=== PATIENT | female | born 1935 | race American Indian/Alaskan Native ===

== ENCOUNTER 2017-05-25 10:19 | Emergency (ER) | payer MEDICARE, OTHER ==
[2017-05-25] MEDS ORDERED: Sodium Chloride 0.9% 10 ML Syringe FLUSH PRN (11:14)
[2017-05-25 12:08] LABS: ANION GAP 10.8; CHLORIDE,CL 103 mmol/L (101-111); SODIUM,NA 136 mmol/L (135-145)
[2017-05-25 12:39] VITALS: BP 128/65
--- NOTE | 2017-05-25 12:41 | EDM.PDOC ---
Scribed by Karyn Ram 05/25/17 1241 for Kvng Lacy MD ED HPI GENERAL MEDICAL PROBLEM - General Chief Complaint: ENT Problem Stated Complaint: [id number] LOSING VOICE THROAT HURTS COUGH Time Seen by Provider: 05/25/17 11:02 Source of Information: Reports: Patient, RN, RN Notes Reviewed History Limitations: Reports: No Limitations - History of Present Illness INITIAL COMMENTS - FREE TEXT/NARRATIVE: Patient arrives from home by POV with complaint of being sick for 2 weeks with cough and sore throat. She was seen at [facility] twice for this and hasn't gotten any better. The first clinic visit she was treated with Z-CECILE. The second clinic visit she got a shot of antibiotic. Patient states "the clinic did no tests, x-ray or nothing". Denies fevers, chest pain, wheezing, nausea or vomiting. Admits to chills and cough with thick green sputum production. Location: Reports: Chest, Other (throat) Quality: Reports: Ache Severity: Moderate Improves with: Reports: None Worsens with: Reports: None Associated Symptoms: Reports: No Other Symptoms Throat Pain Score (Numeric/FACES): 6 - Related Data Allergies Allergy/AdvReac Type Severity Reaction Status Date / Time amoxicillin Allergy Rash Verified 04/05/16 14:09 clindamycin Allergy Rash Verified 04/05/16 14:09 oxycodone Allergy Rash Verified 05/25/17 10:29 Home Meds: Home Meds Ferrous Sulfate [Iron Supplement] 325 mg PO BID 11/01/14 [History] Multivitamins 1 cap PO DAILY 11/01/14 [History] Simvastatin [Zocor] 10 mg PO BEDTIME 11/01/14 [History] Brimonidine [Alphagan 0.2% Ophth Soln] 1 drop EYELF BID 12/02/15 [History] Dorzolamide/Timolol [Cosopt 2%-0.5% Ophth Soln] 1 drop EYELF BID 12/02/15 [ History] Lactose-Reduced Food [Boost] 237 ml PO DAILY 03/06/16 [History] Mineral Oil/Petrolatum Oint [Lacri-Lube S.O.P Oint] 1 applic EYEBOTH BEDTIME PRN 03/06/16 [History] Potassium Chloride 10 meq PO DAILY 03/06/16 [History] Acetaminophen 325 mg PO Q6H 04/05/16 [History] Calcium Citrate/Vitamin D3 [Calcium Citrate + D] 1 tab PO DAILY 04/05/16 [ History] Cholecalciferol (Vitamin D3) [D-2000] 400 unit PO DAILY 04/05/16 [History] Esomeprazole Magnesium 40 mg PO DAILY 04/05/16 [History] Folic Acid 1 mg PO DAILY 04/05/16 [History] Methotrexate 25 mg PO WEEKLY 04/05/16 [History] Prednisone [IJD: Prednisone] 10 mg PO DAILY 04/05/16 [History] Rivaroxaban [Xarelto] 20 mg PO DAILY 04/05/16 [History] Metoprolol Succinate [Toprol XL] 50 mg PO DAILY 05/25/17 [History] Past Medical History HEENT History: Reports: Cataract, Glaucoma, Impaired Vision Other HEENT History: left eye blind; WEARS CORRECTIVE LENSES; NO VISION ON LEFT SIDE; UPPER AND LOWER DENTURE PLATE Cardiovascular History: Reports: Afib, High Cholesterol, Pacemaker Respiratory History: Reports: Pneumonia, Recurrent Gastrointestinal History: Reports: GERD, Hiatal Hernia Other Gastrointestinal History: Hx of GI Bleed Genitourinary History: Reports: None TECHNICAL SOLUTION ARCHITECT History: Reports: None Musculoskeletal History: Reports: Arthritis, Osteoporosis, Other (See Below) Other Musculoskeletal History: Rheumatoid Arthritis Neurological History: Reports: None Psychiatric History: Reports: None Endocrine/Metabolic History: Reports: Obesity/BMI 30+ Hematologic History: Reports: Anemia, Iron Deficiency Immunologic History: Reports: None Oncologic (Cancer) History: Reports: None Dermatologic History: Reports: None - Infectious Disease History Infectious Disease History: Reports: None, Measles - Past Surgical History Head Surgeries/Procedures: Reports: None HEENT Surgical History: Reports: Cataract Surgery, Other (See Below) GI Surgical History: Reports: Colonoscopy, Colostomy, EGD, Esophageal Dilatation , Hernia Repair/Other, Other (See Below) Female Surgical History: Reports: Tubal Ligation Neurological Surgical History: Reports: None Oncologic Surgical History: Reports: None Dermatological Surgical History: Reports: None Social & Family History - Family History Family Medical History: Noncontributory HEENT: Reports: None Respiratory: Reports: None GI: Reports: None : Reports: None OBGYN: Reports: None Musculoskeletal: Reports: None Neurological: Reports: None Psychiatric: Reports: None Endocrine/Metabolic: Reports: Diabetes, type II Hematologic: Reports: None Immunologic: Reports: None Dermatologic: Reports: None Oncologic: Reports: None - Tobacco Use Smoking Status *Q: Never Smoker Years of Tobacco use: 2 Used Tobacco, but Quit: No Month Tobacco Last Used: October Second Hand Smoke Exposure: No - Caffeine Use Caffeine Use: Reports: Tea - Recreational Drug Use Recreational Drug Use: No Drug Use in Last 12 Months: No - Living Situation & Occupation Living situation: Reports: with Family Occupation: Retired ED ROS ENT - Review of Systems Review Of Systems: ROS reveals no pertinent complaints other than HPI. ED EXAM, ENT - Physical Exam Exam: See Below Exam Limited By: No Limitations General Appearance: No Apparent Distress, Other (frail elderly uncomfortable but non-toxic appearing.) Eye Exam: Bilateral Eye: Normal Inspection Ears: Normal External Exam, Normal Canal, Hearing Grossly Normal, Normal TMs Nose: Other (mildnasal congestion) Mouth/Throat: Other (mild pharyngeal erythema with postnasal drip.) Head: Atraumatic, Normocephalic Neck: Normal Inspection, Supple, Non-Tender, Full Range of Motion Respiratory/Chest: No Respiratory Distress, No Accessory Muscle Use, Decreased Breath Sounds (in bilateral bases. Harsh moist cough.), Other (no retraction.) Cardiovascular: Normal Peripheral Pulses, Regular Rate, Rhythm, No Edema, No Gallop, No JVD, No Murmur, No Rub GI/Abdominal: Normal Bowel Sounds, Soft, Non-Tender, No Organomegaly, No Distention, No Abnormal Bruit, No Mass (Female) Exam: Deferred Rectal (Female) Exam: Deferred Back: Normal Inspection, Full Range of Motion Extremities: Normal Inspection Neurological: Alert, Oriented, CN II-XII Intact, Normal Cognition, Normal Gait, Normal Reflexes, No Motor/Sensory Deficits Psychiatric: Normal Affect, Normal Mood Skin: Warm, Dry, Intact, Normal Color, No Rash Course - Vital Signs Last Recorded V/S: Last Vital Signs Temp 36.1 C 05/25/17 12:38 Pulse 67 05/25/17 12:38 Resp 18 05/25/17 12:38 BP 128/65 05/25/17 12:38 Pulse Ox 98 05/25/17 12:38 - Orders/Labs/Meds Orders: Active Orders 24 hr Category Date Time Status Peripheral IV Care [RC] . DIRECTED Care 05/25/17 11:14 Active CULTURE BLOOD [BC] Stat Lab 05/25/17 11:28 Received CULTURE BLOOD [] Stat Lab 05/25/17 11:34 Received CULTURE STREP A CONFIRMATION [] Stat Lab 05/25/17 11:31 Results STREP SCRN A RAPID W CULT CONF [] Stat Lab 05/25/17 11:31 Results UA W/MICROSCOPIC [URIN] Stat Lab 05/25/17 11:14 Uncollected Sodium Chloride 0.9% [Saline Flush] Med 05/25/17 11:14 Active 10 ml FLUSH ASDIRECTED PRN Blood Culture x2 Reflex Set [OM.PC] Stat Oth 05/25/17 11:14 Ordered Peripheral IV Insertion Adult [OM.PC] Stat Oth 05/25/17 11:14 Ordered Medication Orders Sodium Chloride (Saline Flush) 10 ml FLUSH ASDIRECTED PRN PRN Reason: Keep Vein Open Last Admin: 05/25/17 11:33 Dose: 10 ml Labs: Laboratory Tests 05/25/17 05/25/17 05/25/17 Range/Units 11:34 11:34 11:34 WBC 3.8 L (5.0-10.0) 10^3/uL RBC 3.85 L (4.2-5.4) 10^6/uL Hgb 11.3 L (12.0-16.0) g/dL Hct 34.8 L (37.0-47.0) % MCV 90.4 D (80-100) fL MCH 29.4 (27.0-34.0) pg MCHC 32.5 L (33.0-35.0) g/dL Plt Count 226 (150-450) 10^3/uL Neut % (Auto) 56.1 (42.2-75.2) % Lymph % (Auto) 26.8 (20.5-50.1) % [place] % (Auto) 11.2 H (2-8) % Eos % (Auto) 4.9 H (1.0-3.0) % Baso % (Auto) 1.0 (0.0-1.0) % Sodium 136 (135-145) mmol/L Potassium 3.8 (3.6-5.0) mmol/L Chloride 103 (101-111) mmol/L Carbon Dioxide 26.0 (21.0-31.0) mmol/L Anion Gap 10.8 BUN 10 (7-18) mg/dL Creatinine 0.6 (0.6-1.3) mg/dL Est Cr Clr Drug Dosing 73.93 mL/min Estimated GFR (MDRD) > 60 BUN/Creatinine Ratio 16.66 Glucose 109 H (74-105) mg/dL Lactic Acid 0.6 (0.5-2.2) mmol/L Calcium 8.8 (8.4-10.2) mg/dl Total Bilirubin 0.5 (0.2-1.0) mg/dL AST 18 (10-42) IU/L ALT 11 (10-60) IU/L Alkaline Phosphatase 56 (42-121) IU/L B-Natriuretic Peptide 48 (0-100) pg/ml Total Protein 7.0 (6.7-8.2) g/dl Albumin 3.7 (3.2-5.5) g/dl Globulin 3.3 Albumin/Globulin Ratio 1.12 Rapid strep: egative. Influenza A and B: Negative. Meds: Medications Generic Name Dose Route Start Last Admin Trade Name Freq PRN Reason Stop Dose Admin Sodium Chloride 10 ml 05/25/17 11:14 05/25/17 11:33 Saline Flush FLUSH 10 ml ASDIRECTED PRN Administration Keep Vein Open - Radiology Interpretation Free Text/Narrative:: Chest x-ray: Emphysema and chronic interstitial lung disease. See Rad report. Departure - Departure Time of Disposition: 12:36 Disposition: Home, Self-Care 01 Condition: Good Clinical Impression: Interstitial lung disease Acute bronchitis Qualifiers: Bronchitis organism: unspecified organism Qualified Code(s): J20.9 - Acute bronchitis, unspecified Pharyngitis Qualifiers: Pharyngitis/tonsillitis etiology: unspecified etiology Qualified Code(s): J02.9 - Acute pharyngitis, unspecified - Discharge Information Instructions: Acute Bronchitis, [id number], Pharyngitis, [id number] Forms: ED Department Discharge Additional Instructions: RX: Zyrtec 10mg. RX: Tessalon Perles 200mg. RX: Levaquin 500mg. RX: Prednisone 20mg. Follow up in clinic in 7-10 days. Return to ER if worse at any time. - My Orders Last 24 Hours: My Active Orders 05/25/17 11:14 Peripheral IV Care [RC] . DIRECTED UA W/MICROSCOPIC [URIN] Stat Sodium Chloride 0.9% [Saline Flush] 10 ml FLUSH ASDIRECTED PRN Blood Culture x2 Reflex Set [OM.PC] Stat Peripheral IV Insertion Adult [OM.PC] Stat 05/25/17 11:28 CULTURE BLOOD [BC] Stat 05/25/17 11:31 CULTURE STREP A CONFIRMATION [RM] Stat STREP SCRN A RAPID W CULT CONF [RM] Stat 05/25/17 11:34 CULTURE BLOOD [BC] Stat - Assessment/Plan Last 24 Hours: My Active Orders 05/25/17 11:14 Peripheral IV Care [RC] . DIRECTED UA W/MICROSCOPIC [URIN] Stat Sodium Chloride 0.9% [Saline Flush] 10 ml FLUSH ASDIRECTED PRN Blood Culture x2 Reflex Set [OM.PC] Stat Peripheral IV Insertion Adult [OM.PC] Stat 05/25/17 11:28 CULTURE BLOOD [BC] Stat 05/25/17 11:31 CULTURE STREP A CONFIRMATION [RM] Stat STREP SCRN A RAPID W CULT CONF [RM] Stat 05/25/17 11:34 CULTURE BLOOD [BC] Stat I have read and agree with the documentation that has been completed regarding this visit. By signing this record, I attest that the documentation was completed in my physical presence and is an accurate record of the encounter.
== END 2017-05-25 12:46 | disposition home or self-care (01) ==
LOC: DL.ED 10:19
DX: J20.9 Acute bronchitis, unspecified (principal); J84.9 Interstitial pulmonary disease, unspecified; J02.9 Acute pharyngitis, unspecified; R06.00 Dyspnea, unspecified; E78.00 Pure hypercholesterolemia, unspecified; Z88.1 Allergy status to other antibiotic agents; Z88.5 Allergy status to narcotic agent; Z79.899 Other long term (current) drug therapy
CPT/HCPCS: 36415; 71046; 80053; 81001; 83605; 83880; 85025; 87040; 87081; 87430; 87804; 99283; J7050

== ENCOUNTER 2018-02-04 12:39 | Emergency (ER) | payer MEDICARE, OTHER ==
[2018-02-04] MEDS ORDERED: Ondansetron 4 MG/2 ML SDV IV ONE (12:56)
[2018-02-04] MEDS ORDERED: Sodium Chloride 0.9% 1,000 ML IV ONE (12:56)
--- NOTE | 2018-02-04 13:17 | EDM.PDOC ---
ED HPI GENERAL MEDICAL PROBLEM - General Chief Complaint: Gastrointestinal Problem Stated Complaint: NOT FEELING GOOD Time Seen by Provider: 02/04/18 13:00 Source of Information: Reports: Patient History Limitations: Reports: No Limitations - History of Present Illness INITIAL COMMENTS - FREE TEXT/NARRATIVE: This 82 yo female patient reports to the ED due to waking up at 0400 this morning with diarrhea, has had some nausea/vomiting with that and now has some chest pain. The patient reports that she as has 6 loose bowel movements since 0400 today and has vomited 2 times. The patient reports that she tried to take some Pepto, but that caused her to vomit. The patient reports her chest pain started after the vomiting. The patient report no similar episodes in the past. Onset: Today Onset Date: 02/04/18 Onset Time: 04:00 Duration: Constant Location: Reports: Chest, Abdomen Quality: Reports: Burning, Dull Severity: Moderate Improves with: Reports: None Worsens with: Reports: None Associated Symptoms: Reports: Nausea/Vomiting, Other (diarrhea) Treatments MARKETING OPERATIONS CONSULTANT: Reports: Other Medication(s) (Tried to take Pepto) Chest Pain Score (Numeric/FACES): 6 - Related Data Allergies Allergy/AdvReac Type Severity Reaction Status Date / Time amoxicillin Allergy Rash Verified 02/04/18 12:44 clindamycin Allergy Rash Verified 02/04/18 12:44 oxycodone Allergy Rash Verified 02/04/18 12:44 Home Meds: Home Meds Multivitamins 1 cap PO DAILY 11/01/14 [History] Simvastatin [Zocor] 10 mg PO BEDTIME 11/01/14 [History] Brimonidine [Alphagan 0.2% Ophth Soln] 1 drop EYELF BID 12/02/15 [History] Dorzolamide/Timolol [Cosopt 2%-0.5% Ophth Soln] 1 drop EYELF BID 12/02/15 [ History] Mineral Oil/Petrolatum Oint [Lacri-Lube S.O.P Oint] 1 applic EYEBOTH BEDTIME PRN 03/06/16 [History] Acetaminophen 325 mg PO Q6H 04/05/16 [History] Calcium Citrate/Vitamin D3 [Calcium Citrate + D] 1 tab PO DAILY 04/05/16 [ History] Cholecalciferol (Vitamin D3) [D-2000] 400 unit PO DAILY 04/05/16 [History] Folic Acid 1 mg PO DAILY 04/05/16 [History] Methotrexate 25 mg PO WEEKLY 04/05/16 [History] Rivaroxaban [Xarelto] 20 mg PO DAILY 04/05/16 [History] Metoprolol Succinate [Toprol XL] 50 mg PO DAILY 05/25/17 [History] Past Medical History HEENT History: Reports: Cataract, Glaucoma, Impaired Vision Other HEENT History: left eye blind; WEARS CORRECTIVE LENSES; NO VISION ON LEFT SIDE; UPPER AND LOWER DENTURE PLATE Cardiovascular History: Reports: Afib, High Cholesterol, Pacemaker Respiratory History: Reports: Pneumonia, Recurrent Gastrointestinal History: Reports: GERD, Hiatal Hernia Other Gastrointestinal History: Hx of GI Bleed Genitourinary History: Reports: None FUEL OPERATOR History: Reports: None Musculoskeletal History: Reports: Arthritis, Osteoporosis, Other (See Below) Other Musculoskeletal History: Rheumatoid Arthritis Neurological History: Reports: None Psychiatric History: Reports: None Endocrine/Metabolic History: Reports: Obesity/BMI 30+ Hematologic History: Reports: Anemia, Iron Deficiency Immunologic History: Reports: None Oncologic (Cancer) History: Reports: None Dermatologic History: Reports: None - Infectious Disease History Infectious Disease History: Reports: None, Measles - Past Surgical History Head Surgeries/Procedures: Reports: None HEENT Surgical History: Reports: Cataract Surgery, Other (See Below) GI Surgical History: Reports: Colonoscopy, Colostomy, EGD, Esophageal Dilatation , Hernia Repair/Other, Other (See Below) Female Surgical History: Reports: Tubal Ligation Neurological Surgical History: Reports: None Oncologic Surgical History: Reports: None Dermatological Surgical History: Reports: None Social & Family History - Family History Family Medical History: Noncontributory HEENT: Reports: None Respiratory: Reports: None GI: Reports: None : Reports: None OBGYN: Reports: None Musculoskeletal: Reports: None Neurological: Reports: None Psychiatric: Reports: None Endocrine/Metabolic: Reports: Diabetes, type II Hematologic: Reports: None Immunologic: Reports: None Dermatologic: Reports: None Oncologic: Reports: None - Tobacco Use Smoking Status *Q: Never Smoker - Caffeine Use Caffeine Use: Reports: Tea - Recreational Drug Use Recreational Drug Use: No - Living Situation & Occupation Living situation: Reports: with Family Occupation: Retired ED ROS GENERAL - Review of Systems Review Of Systems: ROS reveals no pertinent complaints other than HPI. ED EXAM, GI/ABD - Physical Exam Exam: See Below Exam Limited By: No Limitations General Appearance: Alert, WD/WN, Moderate Distress, Thin Eyes: Bilateral: Normal Appearance (The patient has clouding of both eyes and has surgery planned for her right eye. The patient reports that she is not able to see anything out of her left eye. ), EOMI Ears: Normal External Exam, Normal Canal, Hearing Grossly Normal, Normal TMs Nose: Normal Inspection, Normal Mucosa, No Blood Throat/Mouth: Normal Inspection, Normal Lips, Normal Teeth, Normal Gums, Normal Oropharynx, Normal Voice, No Airway Compromise Head: Atraumatic, Normocephalic Neck: Normal Inspection, Supple, Non-Tender, Full Range of Motion Respiratory/Chest: No Respiratory Distress, Lungs Clear, Normal Breath Sounds, No Accessory Muscle Use, Chest Non-Tender Cardiovascular: Normal Peripheral Pulses, Regular Rate, Rhythm, No Edema, No Gallop, No JVD, No Murmur, No Rub GI/Abdominal Exam: Normal Bowel Sounds, Soft, No Organomegaly, No Distention, No Abnormal Bruit, No Mass, Pelvis Stable, Tender (diffuse tenderness) (Female) Exam: Deferred Rectal (Female) Exam: Deferred Back Exam: Normal Inspection, Full Range of Motion, NT Extremities: Normal Inspection, Normal Range of Motion, Non-Tender, Normal Capillary Refill, No Pedal Edema Neurological: Alert, Oriented, CN II-XII Intact, Normal Cognition Psychiatric: Normal Affect, Normal Mood Skin Exam: Warm, Dry, Intact, Normal Color, No Rash Lymphatic: No Adenopathy Course - Vital Signs Last Recorded V/S: Last Vital Signs Temp 36.2 C 02/04/18 12:44 Pulse 60 02/04/18 13:41 Resp 18 02/04/18 13:41 BP 106/55 L 02/04/18 13:41 Pulse Ox 99 02/04/18 13:41 - Orders/Labs/Meds Orders: Active Orders 24 hr Category Date Time Status EKG Documentation Completion [RC] URGENT Care 02/04/18 12:57 Active Chest 1V Frontal [CR] Urgent Exams 02/04/18 13:05 Taken Sodium Chloride 0.9% [Normal Saline] 1,000 ml Med 02/04/18 12:56 Active IV .BOLUS Medication Orders Sodium Chloride (Normal Saline) 1,000 mls @ 999 mls/hr IV .BOLUS ONE Stop: 02/04/18 13:56 Last Infusion: 02/04/18 13:32 Dose: 125 mls/hr Admin: 02/04/18 13:04 Dose: 999 mls/hr Labs: Laboratory Tests 02/04/18 02/04/18 Range/Units 13:00 13:00 WBC 6.5 (5.0-10.0) 10^3/uL RBC 4.72 (4.2-5.4) 10^6/uL Hgb 13.5 D (12.0-16.0) g/dL Hct 42.3 (37.0-47.0) % MCV 89.6 (80-100) fL MCH 28.6 (27.0-34.0) pg MCHC 31.9 L (33.0-35.0) g/dL Plt Count 230 (150-450) 10^3/uL Neut % (Auto) 80.7 H (42.2-75.2) % Lymph % (Auto) 12.7 L (20.5-50.1) % [place] % (Auto) 5.2 (2-8) % Eos % (Auto) 0.9 L (1.0-3.0) % Baso % (Auto) 0.5 (0.0-1.0) % Sodium 135 (135-145) mmol/L Potassium 4.2 (3.6-5.0) mmol/L Chloride 107 (101-111) mmol/L Carbon Dioxide 18.0 L (21.0-31.0) mmol/L Anion Gap 14.2 BUN 25 H (7-18) mg/dL Creatinine 1.3 (0.6-1.3) mg/dL Est Cr Clr Drug Dosing 33.56 mL/min Estimated GFR (MDRD) 39 BUN/Creatinine Ratio 19.23 Glucose 125 H (74-105) mg/dL Calcium 9.9 (8.4-10.2) mg/dl Total Bilirubin 1.0 (0.2-1.0) mg/dL AST 26 (10-42) IU/L ALT 19 (10-60) IU/L Alkaline Phosphatase 73 (42-121) IU/L Troponin I < 0.02 (0.00-0.02) ng/ml Total Protein 8.9 H (6.7-8.2) g/dl Albumin 4.6 (3.2-5.5) g/dl Globulin 4.3 Albumin/Globulin Ratio 1.07 Amylase 58 (28-100) U/L Lipase 24 (22-51) U/L Meds: Medications Generic Name Dose Route Start Last Admin Trade Name Freq PRN Reason Stop Dose Admin Sodium Chloride 1,000 mls @ 999 mls/hr 02/04/18 12:56 02/04/18 13:32 Normal Saline IV 02/04/18 13:56 125 mls/hr .BOLUS ONE Infusion Discontinued Medications Generic Name Dose Route Start Last Admin Trade Name Freq PRN Reason Stop Dose Admin Ondansetron HCl 4 mg 02/04/18 12:56 02/04/18 13:12 Zofran IV 02/04/18 12:57 4 mg ONETIME ONE Administration Departure - Departure Time of Disposition: 13:43 Disposition: Home, Self-Care 01 Condition: Fair Clinical Impression: Gastroenteritis - Discharge Information *PRESCRIPTION DRUG MONITORING PROGRAM REVIEWED*: Not Applicable *COPY OF PRESCRIPTION DRUG MONITORING REPORT IN PATIENT NAEL: Not Applicable Instructions: Viral Gastroenteritis, Adult, [id number] Forms: ED Department Discharge Care Plan Goals: The patient and family were advised of the examination, lab, EKG and x-ray results during the visit. The patient was given IV fluids and IV Zofran while in the ED. The patient was discharged with a script for Zofran ODT (4 mg) #12 to take 1 by mouth every 6 hours as needed for nausea. The patient was encouraged to stick to a BRAT diet (bananas, rice, applesauce and toast) with small frequent sips of fluids. If the patient has any additional symptoms or concerns, the patient should follow-up with her primary care facility or return to the emergency department. - My Orders Last 24 Hours: My Active Orders 02/04/18 12:56 Sodium Chloride 0.9% [Normal Saline] 1,000 ml IV .BOLUS 02/04/18 12:57 EKG Documentation Completion [RC] URGENT 02/04/18 13:05 Chest 1V Frontal [CR] Urgent - Assessment/Plan Last 24 Hours: My Active Orders 02/04/18 12:56 Sodium Chloride 0.9% [Normal Saline] 1,000 ml IV .BOLUS 02/04/18 12:57 EKG Documentation Completion [RC] URGENT 02/04/18 13:05 Chest 1V Frontal [CR] Urgent
[2018-02-04 13:29] LABS: ANION GAP 14.2; CHLORIDE,CL 107 mmol/L (101-111); SODIUM,NA 135 mmol/L (135-145)
[2018-02-04 13:42] VITALS: BP 106/55
--- NOTE | 2018-02-04 14:09 | CR ---
CLINICAL HISTORY: 82-year-old female with chest pain INTERPRETATION: Large hiatus hernia incarcerated in the middle mediastinum. Chronic interstitial fibrotic changes that were present on 25 May 2017 exam. Cardiac pacemaker but leads intact and normal cardiac size/configuration. No cephalization of flow, n ew signs of alveolar edema or dependent pleural fluid accumulation. No new lung mass, hilar lymphadenopathy or focal lobar pneumonia. Chronic bronchiectasis in the bases suggests possible aspiration. CONCLUSION: No acute new cardiopulmonary abnormality since 25 May 2017 exam.
== END 2018-02-04 13:52 | disposition home or self-care (01) ==
LOC: DL.ED 12:39
DX: K52.9 Noninfective gastroenteritis and colitis, unspecified (principal)
CPT/HCPCS: 36415; 71045; 80053; 82150; 83690; 84484; 85025; 93005; 93010; 96361; 96374; 99284; J2405; J7030

== ENCOUNTER 2020-01-11 05:27 | Day surgery (SDC) | payer MEDICARE, OTHER ==
[2020-01-11] MEDS ORDERED: Midazolam 1 MG/ML 2 ML SDV IV ONE ×3 (05:28→06:41)
[2020-01-11] MEDS ORDERED: fentaNYL 100 MCG/2 ML SDV IV ONE ×2 (05:28→06:37)
[2020-01-11] MEDS ORDERED: Sodium Chloride 0.9% 10 ML Syringe FLUSH PRN (06:00)
[2020-01-11] MEDS ORDERED: Dextrose 5%-0.45% NaCl 1,000 ML IV SCH (06:00)
[2020-01-11] MEDS ORDERED: fentaNYL 100 MCG/2 ML SDV ONE (06:19)
[2020-01-11] MEDS ORDERED: Midazolam 1 MG/ML 2 ML SDV ONE (06:19)
--- NOTE | 2020-01-11 08:10 | OR ---
DATE: 01/11/2020 PROCEDURE: Esophagogastroduodenoscopy and multiple pinch biopsies. INSTRUMENT USED: GIF-HQ 190 Olympus video panendoscope. PREMEDICATIONS: No oral or topical anesthesia used. Fentanyl 50 mcg intravenous, Versed 1 mg intravenous. Nasal O2 cannula. The procedure was done under pulse oximetry, BP recording, and nurse monitoring. INDICATION: The patient with iron-deficiency anemia and Hemoccult positive stools, unexplained. Has rheumatoid arthritis and on multiple medications. Esophagogastroduodenoscopy is performed for detection of any active erosive lesions, Islverman esophagus and/or malignancy also under consideration, H pylori status to be determined, small bowel biopsies to be obtained if indicated, endoscopic hemostasis therapy if needed. DESCRIPTION OF PROCEDURE: The scope was passed with ease. Adequate visualization of the esophagus was made from proximal to distal areas. No upper esophageal lesions identified. No distal esophageal stricture. No uphill or downhill esophageal varices. No Mary-Rocha tear. No evidence of erosive esophagitis by [place] criteria. No esophageal polyp or tumor mass identified. Large hiatal hernia was noted. No proximal gastric varices noted. Gastric fundus examination by retroflexion showed no polypoid lesions. No gastric ulcer, malignant mass, or vascular ectasia identified. Duodenal bulb showed no ulcer. Visualized second part of the duodenum was unremarkable. Multiple pinch biopsies, 4 in number, were taken from different areas of the second part of the duodenum, and tissues were also obtained from the duodenal bulb at 9 and 12 o'clock positions and sent for any histopathologic evidence of celiac disease. Multiple pinch biopsies were also taken from the gastric antrum and proximal body and sent for PyloriTek test for H pylori and histopathology. No bleeding was noted from any of the visualized areas at the completion of examination. Photographs were taken of the duodenal bulb, gastric antrum, fundus, and distal esophagus. IMPRESSION: Large hiatal hernia. The patient tolerated the procedure well. [facility] /[id number] MTDD
--- NOTE | 2020-01-11 08:40 | LETTER ---
01/11/2020 Cyndy Goodson NP [facility] [address] [place] [address] RE: ELLYNREYNALDO : 1935 Dear Ms. Goodson: Ms. Reynaldo Suárez had esophagogastroduodenoscopy done this morning and she tolerated the procedure well. I herewith send a copy of the endoscopy note and photographs for your review. Thank you. Sincerely, [facility] /[id number]
[2020-01-11 09:29] VITALS: BP 140/56; PULSE 66
== END 2020-01-11 08:55 | disposition home or self-care (01) ==
LOC: DL.ENDO 05:27
PROVIDERS: ATTEND Internal Medicine Gastroenterology
DX: K29.50 Unspecified chronic gastritis without bleeding (principal); K44.9 Diaphragmatic hernia without obstruction or gangrene; D50.9 Iron deficiency anemia, unspecified; R19.5 Other fecal abnormalities; K21.9 Gastro-esophageal reflux disease without esophagitis; E78.00 Pure hypercholesterolemia, unspecified; K40.90 Unilateral inguinal hernia, without obstruction or gangrene, not specified as recurrent; I48.91 Unspecified atrial fibrillation; Z95.0 Presence of cardiac pacemaker; Z87.19 Personal history of other diseases of the digestive system; Z87.39 Personal history of other diseases of the musculoskeletal system and connective tissue; Z98.49 Cataract extraction status, unspecified eye; Z98.890 Other specified postprocedural states; Z88.0 Allergy status to penicillin; Z88.1 Allergy status to other antibiotic agents; Z88.6 Allergy status to analgesic agent; Z79.899 Other long term (current) drug therapy
CPT/HCPCS: 43239; 87077; 88305; J2250; J3010; J7042

== ENCOUNTER 2020-01-15 06:35 | Day surgery (SDC) | payer MEDICARE, OTHER ==
[~2020-01-15 06:35] MED LIST: Dextrose 5%-0.45% NaCl 1,000 ML IV SCH; Sodium Chloride 0.9% 10 ML Syringe FLUSH PRN
[2020-01-15] MEDS ORDERED: Midazolam 1 MG/ML 2 ML SDV IV ONE ×3 (06:36→08:04)
[2020-01-15] MEDS ORDERED: fentaNYL 100 MCG/2 ML SDV IV ONE ×4 (06:36→07:47)
[2020-01-15] MEDS ORDERED: Midazolam 1 MG/ML 2 ML SDV ONE (06:42)
[2020-01-15] MEDS ORDERED: fentaNYL 100 MCG/2 ML SDV ONE (06:43)
[2020-01-15 10:18] VITALS: BP 107/75; PULSE 64
--- NOTE | 2020-01-15 10:19 | OR ---
DATE: 01/15/2020 PROCEDURE: Total colonoscopy. INSTRUMENT USED: PCF-H190DL Olympus video colonoscope. PREMEDICATIONS: Fentanyl 100 mcg intravenous, Versed 1.5 mg intravenous. Nasal O2 cannula. The procedure was done under pulse oximetry, BP recording, and monitoring tech. INDICATION: The patient with iron-deficiency anemia and Hemoccult positive stools. Colonoscopic examination is done for detection of any polypoid lesions and removal, endoscopic hemostasis therapy if needed. DESCRIPTION OF PROCEDURE: Initial rectal exam was unremarkable. Rigid anoscopy showed small internal hemorrhoids without bleeding from them. The colonoscope was passed up to the ileocecal area. Photographs were taken of the normal- appearing cecum, identified by double-bulged ileocecal folds. No bleeding was noted from any of the visualized areas at the commencement of the examination. The bowel preparation was found to be adequate. [place] scale 2 is all the areas, total score 6. No vascular ectasia. No large isolated ulcerations seen. No evidence of diffuse inflammatory bowel disease in the form of friability, contact bleeding, or ulcerations. No polyp or tumor mass identified. Numerous scattered wide-mouth diverticula were noted in the distal left colon along with significant deformity. Probing the proximal sides of folds and flexures using adequate distention and clearing up the stool material, withdrawal of the scope was made, cecum to rectum time over 6 minutes. No bleeding was noted from any of the visualized areas at the completion of examination. IMPRESSION: Diverticulosis. The patient tolerated the procedure well. [facility] /[id number]
--- NOTE | 2020-01-15 10:31 | LETTER ---
01/15/[address] Goodson NP [facility] [address] [place] [address] RE: ELLYNREYNALDO : 1935 Dear Ms. Goodson: Ms. Reynaldo Suárez had colonoscopic examination done this morning and she tolerated the procedure well. I herewith send a copy of the endoscopy note and photographs for your review. Thank you. Sincerely, [facility] /[id number]
== END 2020-01-15 10:17 | disposition home or self-care (01) ==
LOC: DL.ENDO 06:35
PROVIDERS: ATTEND Internal Medicine Gastroenterology
DX: K57.30 Diverticulosis of large intestine without perforation or abscess without bleeding (principal); D50.9 Iron deficiency anemia, unspecified; K21.9 Gastro-esophageal reflux disease without esophagitis; K44.9 Diaphragmatic hernia without obstruction or gangrene; K40.90 Unilateral inguinal hernia, without obstruction or gangrene, not specified as recurrent; E78.00 Pure hypercholesterolemia, unspecified; I48.91 Unspecified atrial fibrillation; Z95.0 Presence of cardiac pacemaker; Z88.0 Allergy status to penicillin; Z88.1 Allergy status to other antibiotic agents; Z87.19 Personal history of other diseases of the digestive system; Z87.39 Personal history of other diseases of the musculoskeletal system and connective tissue; Z98.49 Cataract extraction status, unspecified eye; Z88.6 Allergy status to analgesic agent
CPT/HCPCS: 45378; J2250; J3010; J7042

== ENCOUNTER 2020-03-31 13:12 | Emergency (ER) | payer MEDICARE, OTHER ==
[2020-03-31 13:16] VITALS: BP 120/68; PULSE 104
[2020-03-31 14:23] LABS: CHLORIDE,CL 94 mmol/L (98-107); SODIUM,NA 128 mmol/L (136-145)
[2020-03-31] MEDS ORDERED: Iopamidol 755 Mg/ML 100 ML Bottle IVPUSH ONE (15:02)
--- NOTE | 2020-03-31 15:02 | EDM.PDOC ---
ED HPI GENERAL MEDICAL PROBLEM - General Chief Complaint: Respiratory Problem Stated Complaint: AMBULANCE Time Seen by Provider: 03/31/20 13:45 Source of Information: Reports: Patient, RN, RN Notes Reviewed History Limitations: Reports: No Limitations - History of Present Illness INITIAL COMMENTS - FREE TEXT/NARRATIVE: Patient presents to ER with complaint of cough, shortness of breath, and pressure in the chest. Patient states she has a history of pulmonary fibrosis. Denies fever chills, nausea, vomiting, diarrhea. Patient denies any Covid concerns at this time. Oxygen saturation 96 to 98% on room air, patient does not appear to be in any distress. Onset: Gradual Generalized Pain Score (Numeric/FACES): 4 - Related Data Allergies Allergy/AdvReac Type Severity Reaction Status Date / Time amoxicillin Allergy Rash Verified 03/31/20 13:12 clindamycin Allergy Rash Verified 03/31/20 13:12 oxycodone Allergy Rash Verified 03/31/20 13:12 Home Meds: Home Meds Multivitamins 1 cap PO DAILY 11/01/14 [History] Simvastatin [Zocor] 10 mg PO BEDTIME 11/01/14 [History] Brimonidine [Alphagan 0.2% Ophth Soln] 1 drop EYELF BID 12/02/15 [History] Dorzolamide/Timolol [Cosopt 2%-0.5% Ophth Soln] 1 drop EYELF BID 12/02/15 [History] Mineral Oil/Petrolatum Oint [Lacri-Lube S.O.P Oint] 1 applic EYEBOTH BEDTIME PRN 03/06/16 [History] Acetaminophen 325 mg PO Q6H 04/05/16 [History] Calcium Citrate/Vitamin D3 [Calcium Citrate + D] 1 tab PO BID 04/05/16 [History] Folic Acid 1 mg PO DAILY 04/05/16 [History] Rivaroxaban [Xarelto] 20 mg PO DAILY 04/05/16 [History] Metoprolol Succinate [Toprol XL] 50 mg PO DAILY 05/25/17 [History] Adalimumab [Humira] 40 mg INJECT .[id number] 01/07/20 [History] Carboxymethylcellulose Sodium [Refresh Celluvisc] 1 drop EYEBOTH BEDTIME 01/07/20 [History] Diclofenac Sodium [Voltaren 1% Gel] 1 squirt TOP ASDIRECTED 01/07/20 [History] Esomeprazole Magnesium [Nexium] 40 mg PO DAILY 01/07/20 [History] Ketorolac [Acular 0.5% Ophth Soln] 1 drop EYEBOTH ASDIRECTED 01/07/20 [History] Cetirizine [ZyrTEC] 10 mg PO DAILY 01/11/20 [History] Cholecalciferol (Vitamin D3) [Vitamin D3] 50 mcg PO DAILY 01/11/20 [History] Leflunomide [Arava] 10 mg PO DAILY 01/11/20 [History] Zinc 50 mg PO DAILY 01/11/20 [History] Past Medical History HEENT History: Reports: Cataract, Glaucoma, Impaired Vision Other HEENT History: left eye blind; WEARS CORRECTIVE LENSES; NO VISION ON LEFT SIDE; UPPER AND LOWER DENTURE PLATE Cardiovascular History: Reports: Afib, High Cholesterol, Pacemaker Respiratory History: Reports: Asthma, PE, Pneumonia, Recurrent, Pulmonary Fibrosis, Other (See Below) Other Respiratory History: pulmonary fibrosis Gastrointestinal History: Reports: GERD, GI Bleed, Hiatal Hernia Other Gastrointestinal History: Hx of GI Bleed Genitourinary History: Reports: Other (See Below) Other Genitourinary History: bilateral renal cysts 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 Musculoskeletal History: Reports: Arthritis, Osteoporosis, RA, Other (See Below) Other Musculoskeletal History: Rheumatoid Arthritis Neurological History: Reports: None Psychiatric History: Reports: None Endocrine/Metabolic History: Reports: Obesity/BMI 30+ Hematologic History: Reports: Anemia, Iron Deficiency Immunologic History: Reports: None Oncologic (Cancer) History: Reports: None Dermatologic History: Reports: None - Infectious Disease History Infectious Disease History: Reports: None - Past Surgical History Head Surgeries/Procedures: Reports: None HEENT Surgical History: Reports: Cataract Surgery, Other (See Below) Other HEENT Surgeries/Procedures: CORNEA TRANSPLANT X2 Cardiovascular Surgical History: Reports: Pacer GI Surgical History: Reports: Colonoscopy, Colostomy, EGD, Esophageal Dilatation, Hernia Repair/Other, Other (See Below) Other GI Surgeries/Procedures: Umbilical Hernia Repair. esophageal dilatation Female Surgical History: Reports: None Neurological Surgical History: Reports: None Musculoskeletal Surgical History: Reports: None Oncologic Surgical History: Reports: None Dermatological Surgical History: Reports: None Social & Family History - Family History Family Medical History: No Pertinent Family History HEENT: Reports: None Respiratory: Reports: None GI: Reports: None : Reports: None OBGYN: Reports: None Musculoskeletal: Reports: None Neurological: Reports: None Psychiatric: Reports: None Endocrine/Metabolic: Reports: Diabetes, type II Hematologic: Reports: None Immunologic: Reports: None Dermatologic: Reports: None Oncologic: Reports: None - Tobacco Use Tobacco Use Status *Q: Never Tobacco User Second Hand Smoke Exposure: No - Caffeine Use Caffeine Use: Reports: Coffee Caffeine Use Comment: 16 oz daily - Recreational Drug Use Recreational Drug Use: No - Living Situation & Occupation Living situation: Reports: with Family Occupation: Retired ED ROS GENERAL - Review of Systems Review Of Systems: Comprehensive ROS is negative, except as noted in HPI. ED EXAM, GENERAL - Physical Exam Exam: See Below Exam Limited By: No Limitations General Appearance: Alert, WD/WN, No Apparent Distress Eye Exam: Right Eye: EOMI, Normal Inspection, Left Eye: Other (keeps eye closed at all times) Ears: Normal External Exam, Hearing Grossly Normal Nose: Normal Inspection Throat/Mouth: Normal Inspection, Normal Voice, No Airway Compromise Head: Atraumatic, Normocephalic Neck: Normal Inspection, Supple, Non-Tender, Full Range of Motion Respiratory/Chest: No Respiratory Distress, Decreased Breath Sounds, Crackles (Throughout) Cardiovascular: Normal Peripheral Pulses, Regular Rate, Rhythm, No Edema, No Gallop, No JVD, No Murmur, No Rub Peripheral Pulses: 2+: Radial (L), Radial (R) GI/Abdominal: Normal Bowel Sounds, Soft, Non-Tender (Female) Exam: Deferred Rectal (Female) Exam: Deferred Back Exam: Normal Inspection, Decreased Range of Motion Extremities: Normal Inspection, Normal Range of Motion, Non-Tender, Normal Capillary Refill, No Pedal Edema Neurological: Alert, Oriented, CN II-XII Intact, Normal Cognition Psychiatric: Normal Affect, Normal Mood Skin Exam: Warm, Dry, Intact, Normal Color, No Rash Lymphatic: No Adenopathy Course - Vital Signs Last Recorded V/S: Last Vital Signs Temp 99.0 F 03/31/20 13:13 Pulse 104 H 03/31/20 13:13 Resp 18 03/31/20 13:13 BP 120/68 03/31/20 13:13 Pulse Ox 97 03/31/20 13:13 - Orders/Labs/Meds Orders: Active Orders 24 hr Category Date Time Status CULTURE BLOOD [BC] Stat Lab 03/31/20 13:43 Received CULTURE BLOOD [BC] Stat Lab 03/31/20 13:46 Received CULTURE URINE [RM] Stat Lab 03/31/20 16:50 Received Blood Culture x2 Reflex Set [OM.PC] Stat Oth 03/31/20 13:25 Ordered Labs: Laboratory Tests 03/31/20 03/31/20 03/31/20 Range/Units 13:34 13:46 13:46 WBC 7.2 (5.0-10.0) 10^3/uL RBC 3.64 L (4.2-5.4) 10^6/uL Hgb 9.7 L D (12.0-16.0) g/dL Hct 29.4 L (37.0-47.0) % MCV 80.8 D (80-100) fL MCH 26.6 L (27.0-34.0) pg MCHC 33.0 (33.0-35.0) g/dL Plt Count 352 D (150-450) 10^3/uL Neut % (Auto) 74.2 (42.2-75.2) % Lymph % (Auto) 13.3 L (20.5-50.1) % [place] % (Auto) 7.9 (2-8) % Eos % (Auto) 1.1 (1.0-3.0) % Baso % (Auto) 3.5 H (0.0-1.0) % Add Manual Diff Yes Neutrophils % (Manual) 76 H (42-75) % Band Neutrophils % 4 % Lymphocytes % (Manual) 12 L (20-50) % Monocytes % (Manual) 7 (2-8) % Eosinophils % (Manual) 1 (1-3) % Nucleated RBCs 1 /100WBC PT 12.3 H (9.0-12.0) SEC INR 1.3 H (0.9-1.2) D-Dimer, Quantitative 1240 H (0-400) ng/mL Sodium (136-145) mmol/L Potassium (3.5-5.1) mmol/L Chloride (98-107) mmol/L Carbon Dioxide (21-32) mmol/L Anion Gap (7-13) mEq/L BUN (7-18) mg/dL Creatinine (0.55-1.02) mg/dL Est Cr Clr Drug Dosing mL/min Estimated GFR (MDRD) BUN/Creatinine Ratio (No establ ref range) Glucose (74-99) mg/dL Lactic Acid (0.4-2.0) mmol/L Calcium (8.5-10.1) mg/dL Total Bilirubin (0.2-1.0) mg/dL AST (15-37) U/L ALT (14-59) U/L Alkaline Phosphatase (46-116) U/L Lactate Dehydrogenase (81-234) U/L Troponin I (0.000-0.056) ng/mL B-Natriuretic Peptide (0-100) pg/ml Total Protein (6.4-8.2) g/dL Albumin (3.4-5.0) g/dL Globulin Albumin/Globulin Ratio Urine Color (YELLOW) Urine Appearance (CLEAR) Urine pH (5.0-9.0) Ur Specific [place] (1.005-1.030) Urine Protein (NEGATIVE) Urine Glucose (UA) (NEGATIVE) Urine Ketones (NEGATIVE) Urine Occult Blood (NEGATIVE) Urine Nitrite (NEGATIVE) Urine Bilirubin (NEGATIVE) Urine Urobilinogen (0.2-1.0) mg/dL Ur Leukocyte Esterase (NEGATIVE) Urine RBC /HPF Urine WBC (0-5/HPF) /HPF Ur Epithelial Cells (NOT SEEN) /HPF Amorphous Sediment (NOT SEEN) /HPF Urine Bacteria (0-FEW/HPF) /HPF Urine Mucus (NOT SEEN) /LPF SARS CoV-2 RNA Rapid QUE Negative (NEGATIVE) 03/31/20 03/31/20 03/31/20 Range/Units 13:46 13:46 16:50 WBC (5.0-10.0) 10^3/uL RBC (4.2-5.4) 10^6/uL Hgb (12.0-16.0) g/dL Hct (37.0-47.0) % MCV (80-100) fL MCH (27.0-34.0) pg MCHC (33.0-35.0) g/dL Plt Count (150-450) 10^3/uL Neut % (Auto) (42.2-75.2) % Lymph % (Auto) (20.5-50.1) % [place] % (Auto) (2-8) % Eos % (Auto) (1.0-3.0) % Baso % (Auto) (0.0-1.0) % Add Manual Diff Neutrophils % (Manual) (42-75) % Band Neutrophils % % Lymphocytes % (Manual) (20-50) % Monocytes % (Manual) (2-8) % Eosinophils % (Manual) (1-3) % Nucleated RBCs /100WBC PT (9.0-12.0) SEC INR (0.9-1.2) D-Dimer, Quantitative (0-400) ng/mL Sodium 128 L (136-145) mmol/L Potassium 4.0 (3.5-5.1) mmol/L Chloride 94 L (98-107) mmol/L Carbon Dioxide 25 (21-32) mmol/L Anion Gap 13.0 (7-13) mEq/L BUN 8 (7-18) mg/dL Creatinine 0.72 (0.55-1.02) mg/dL Est Cr Clr Drug Dosing 56.39 mL/min Estimated GFR (MDRD) > 60 BUN/Creatinine Ratio 11.1 (No establ ref range) Glucose 102 H (74-99) mg/dL Lactic Acid 1.3 (0.4-2.0) mmol/L Calcium 8.8 (8.5-10.1) mg/dL Total Bilirubin 0.6 (0.2-1.0) mg/dL AST 20 (15-37) U/L ALT 16 (14-59) U/L Alkaline Phosphatase 133 H (46-116) U/L Lactate Dehydrogenase 143 (81-234) U/L Troponin I < 0.017 (0.000-0.056) ng/mL B-Natriuretic Peptide 141 H (0-100) pg/ml Total Protein 7.6 (6.4-8.2) g/dL Albumin 2.1 L (3.4-5.0) g/dL Globulin 5.5 Albumin/Globulin Ratio 0.38 Urine Color Yellow (YELLOW) Urine Appearance Cloudy (CLEAR) Urine pH 7.0 (5.0-9.0) Ur Specific [place] 1.010 (1.005-1.030) Urine Protein Negative (NEGATIVE) Urine Glucose (UA) Negative (NEGATIVE) Urine Ketones Negative (NEGATIVE) Urine Occult Blood Small H (NEGATIVE) Urine Nitrite Positive H (NEGATIVE) Urine Bilirubin Negative (NEGATIVE) Urine Urobilinogen 0.2 (0.2-1.0) mg/dL Ur Leukocyte Esterase Small H (NEGATIVE) Urine RBC 50-75 H /HPF Urine WBC >100 H (0-5/HPF) /HPF Ur Epithelial Cells Moderate H (NOT SEEN) /HPF Amorphous Sediment Many H (NOT SEEN) /HPF Urine Bacteria Many H (0-FEW/HPF) /HPF Urine Mucus Moderate H (NOT SEEN) /LPF SARS CoV-2 RNA Rapid QUE (NEGATIVE) Meds: Medications Discontinued Medications Generic Name Dose Route Start Last Admin Trade Name Freq PRN Reason Stop Dose Admin Ceftriaxone Sodium 1 gm/ 50 mls @ 100 mls/hr 03/31/20 15:51 Sodium Chloride IV 03/31/20 16:20 ONETIME ONE Levofloxacin/Dextrose 750 mg/ 150 mls @ 100 mls/hr 03/31/20 15:58 03/31/20 16:21 Premix IV 03/31/20 17:27 100 mls/hr ONETIME ONE Administration Sodium Chloride 1,000 mls @ 250 mls/hr 03/31/20 15:59 03/31/20 16:21 Normal Saline IV 03/31/20 19:58 250 mls/hr .BOLUS ONE Administration Iopamidol 100 ml 03/31/20 15:02 03/31/20 15:13 Isovue-370 (76%) IVPUSH 03/31/20 15:03 58 ml ONETIME ONE Administration - Radiology Interpretation Free Text/Narrative:: CT chest with contrast: 1. Large hiatus hernia, most of the stomach incarcerated in the lower middle mediastinum. 2. Cholelithiasis, calcified gallstone lying in the dependent portion of the distended gallbladder right upper quadrant. 3. Extensive, progressive cystic and bullous emphysematous disease with involvement of both lung corona 4. New signs of lung infection involving superior segment RLL and posterior segment LLL, aspiration? 5. Large heart. Cardiac pacemaker. No pulmonary vascular congestion, alveolar edema, or pleural effusion 6. No suspicious lung mass or hilar/mediastinal lymphadenopathy 7. No intraluminal filling defect or thrombus identified in the main pulmonary artery circulation i.e. low probability PE or pulmonary infarct but note: Subtle additional new perihilar infiltrates right lung apex and right lower lobe, laterally March [address] Conclusion: Abnormal. Evidence of extensive chronic bullous emphysema. Huge hiatus hernia. Lobar pneumonia See radiologist report Departure - Departure Time of Disposition: 18:28 Disposition: Home, Self-Care 01 Condition: Fair Clinical Impression: Pneumonia Qualifiers: Pneumonia type: due to unspecified organism Laterality: right Lung location: middle lobe of lung Qualified Code(s): J18.9 - Pneumonia, unspecified organism UTI (urinary tract infection) Qualifiers: Urinary tract infection type: acute cystitis Hematuria presence: without hematuria Qualified Code(s): N30.00 - Acute cystitis without hematuria - Discharge Information *PRESCRIPTION DRUG MONITORING PROGRAM REVIEWED*: No *COPY OF PRESCRIPTION DRUG MONITORING REPORT IN PATIENT NAEL: No Instructions: Urinary Tract Infection, Adult, Fbez-or-Nhyp, Upper Respiratory Infection, Adult, [id number]-[id number], Aspiration Pneumonia, Community-Acquired Pneumonia, Adult, Kpkz-or-Groq Forms: ED Department Discharge Additional Instructions: Rx:Levaquin Drink plenty of water Follow up with your primary care facility Return to ER with any worsening of problems Sepsis Event Note (ED) - Evaluation Sepsis Screening Result: No Definite Risk - My Orders Last 24 Hours: My Active Orders 03/31/20 13:25 Blood Culture x2 Reflex Set [OM.PC] Stat 03/31/20 13:43 CULTURE BLOOD [BC] Stat 03/31/20 13:46 CULTURE BLOOD [BC] Stat - Assessment/Plan Last 24 Hours: My Active Orders 03/31/20 13:25 Blood Culture x2 Reflex Set [OM.PC] Stat 03/31/20 13:43 CULTURE BLOOD [BC] Stat 03/31/20 13:46 CULTURE BLOOD [BC] Stat
--- NOTE | 2020-03-31 15:40 | CT ---
EXAMINATION: Chest w Cont SEX: Female AGE: 84 years CLINICAL HISTORY: 84-year-old hypertensive, diabetic female is short of breath (SOB). D-dimer 1250. Covid-19 test "negative'. Scan technique: Volume acquisition of data from the chest (bony thorax, lungs and mediastinum) obtained during the intravenous ministration 58 cc nonionic Isovue 370 contrast at 4.5 cc/s via injector (PE study) while patient was lying supine on the Siemens multislice scanner [place], [place]. All data archived in the PACS system for storage, reformatting axial/sagittal/coronal planes and study (lung/mediastinal windows). Interpretation: 1. Large hiatus hernia (most of the stomach incarcerated in the lower middle mediastinum). 2. Cholelithiasis (calcified gallstone lying in the dependent portion of the distended gallbladder, RUQ). 3. Extensive, progressive (compared to 05 April 2016 exam) cystic and bullous emphysematous disease with involvement of both lung corona. 4. *New signs of lung infection involving superior segment RLL and posterior segment LLL. Aspiration? 5. Large heart. Cardiac pacemaker. No pulmonary vascular congestion, alveolar edema or pleural effusion. 6. No suspicious lung mass or hilar/mediastinal lymphadenopathy. 7. No intraluminal filling defect or thrombus identified in the main pulmonary artery circulation i.e. low probability PE or pulmonary infarct but note: subtle additional new peripheral infiltrates right lung apex and right lower lobe, laterally March [address] CONCLUSION: Abnormal. Evidence of extensive chronic bullous emphysema. Huge hiatus hernia. Lobar pneumonia. Low probability pulmonary embolism but cannot exclude possibility of peripheral vascular entity like Covid.
[2020-03-31] MEDS ORDERED: cefTRIAXone 1 GM in Sodium Chloride 0.9% 50 ML IV ONE (15:51)
[2020-03-31] MEDS ORDERED: Levofloxacin/Dextrose 5%-Water 750 MG in Premix Bag 1 BAG IV ONE (15:58)
[2020-03-31] MEDS ORDERED: Sodium Chloride 0.9% 1,000 ML IV ONE (15:59)
== END 2020-03-31 18:28 | disposition home or self-care (01) ==
LOC: DL.ED 13:12
DX: J18.9 Pneumonia, unspecified organism (principal); N30.00 Acute cystitis without hematuria; I48.91 Unspecified atrial fibrillation; E78.00 Pure hypercholesterolemia, unspecified; J45.909 Unspecified asthma, uncomplicated; K21.9 Gastro-esophageal reflux disease without esophagitis; M06.9 Rheumatoid arthritis, unspecified; E66.9 Obesity, unspecified; Z68.22 Body mass index [BMI] 22.0-22.9, adult; Z95.0 Presence of cardiac pacemaker; Z88.1 Allergy status to other antibiotic agents; Z88.5 Allergy status to narcotic agent; Z79.899 Other long term (current) drug therapy; Z79.01 Long term (current) use of anticoagulants; Z20.828 Contact with and (suspected) exposure to other viral communicable diseases
CPT/HCPCS: 36415; 71260; 80053; 81001; 83605; 83615; 83880; 84484; 85025; 85379; 85610; 87040; 87086; 87088; 87186; 93005; 96365; 96366; 99283; 99285-25; J1956; J7030; Q9967; U0002

== ENCOUNTER 2020-04-01 20:17 | Emergency (ER) | payer MEDICARE, OTHER ==
[2020-04-01 22:15] VITALS: BP 91/62; PULSE 88
--- NOTE | 2020-04-01 23:02 | EDM.PDOC ---
ED HPI GENERAL MEDICAL PROBLEM - General Chief Complaint: ENT Problem Stated Complaint: NOSEBLEED AROUND 530, HAS NOT STOPPED Time Seen by Provider: 04/01/20 22:50 Source of Information: Reports: Patient History Limitations: Reports: No Limitations - History of Present Illness INITIAL COMMENTS - FREE TEXT/NARRATIVE: ED with c/o nosebleed starting around 530 difficulty stopping. On xaralto. Seen yesterday for UTI on antibiotic. Denied SOB, No dizziness. Tried pressure and didn't seem to help. Stated just started while sitting. no active bleeding at present. - Related Data Allergies Allergy/AdvReac Type Severity Reaction Status Date / Time amoxicillin Allergy Rash Verified 03/31/20 13:12 clindamycin Allergy Rash Verified 03/31/20 13:12 oxycodone Allergy Rash Verified 03/31/20 13:12 Home Meds: Home Meds Multivitamins 1 cap PO DAILY 11/01/14 [History] Simvastatin [Zocor] 10 mg PO BEDTIME 11/01/14 [History] Brimonidine [Alphagan 0.2% Ophth Soln] 1 drop EYELF BID 12/02/15 [History] Dorzolamide/Timolol [Cosopt 2%-0.5% Ophth Soln] 1 drop EYELF BID 12/02/15 [History] Mineral Oil/Petrolatum Oint [Lacri-Lube S.O.P Oint] 1 applic EYEBOTH BEDTIME PRN 03/06/16 [History] Acetaminophen 325 mg PO Q6H 04/05/16 [History] Calcium Citrate/Vitamin D3 [Calcium Citrate + D] 1 tab PO BID 04/05/16 [History] Folic Acid 1 mg PO DAILY 04/05/16 [History] Rivaroxaban [Xarelto] 20 mg PO DAILY 04/05/16 [History] Metoprolol Succinate [Toprol XL] 50 mg PO DAILY 05/25/17 [History] Adalimumab [Humira] 40 mg INJECT .[id number] 01/07/20 [History] Carboxymethylcellulose Sodium [Refresh Celluvisc] 1 drop EYEBOTH BEDTIME 01/07/20 [History] Diclofenac Sodium [Voltaren 1% Gel] 1 squirt TOP ASDIRECTED 01/07/20 [History] Esomeprazole Magnesium [Nexium] 40 mg PO DAILY 01/07/20 [History] Ketorolac [Acular 0.5% Ophth Soln] 1 drop EYEBOTH ASDIRECTED 01/07/20 [History] Cetirizine [ZyrTEC] 10 mg PO DAILY 01/11/20 [History] Cholecalciferol (Vitamin D3) [Vitamin D3] 50 mcg PO DAILY 01/11/20 [History] Leflunomide [Arava] 10 mg PO DAILY 01/11/20 [History] Zinc 50 mg PO DAILY 01/11/20 [History] Past Medical History HEENT History: Reports: Cataract, Glaucoma, Impaired Vision Other HEENT History: left eye blind; WEARS CORRECTIVE LENSES; NO VISION ON LEFT SIDE; UPPER AND LOWER DENTURE PLATE Cardiovascular History: Reports: Afib, High Cholesterol, Pacemaker Respiratory History: Reports: Asthma, PE, Pneumonia, Recurrent, Pulmonary Fibrosis Gastrointestinal History: Reports: GERD, GI Bleed, Hiatal Hernia Other Gastrointestinal History: Hx of GI Bleed Genitourinary History: Reports: None, Other (See Below) Other Genitourinary History: bilateral renal cysts [employer]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 Musculoskeletal History: Reports: Arthritis, Osteoporosis, RA, Other (See Below) Other Musculoskeletal History: Rheumatoid Arthritis Neurological History: Reports: None Psychiatric History: Reports: None Endocrine/Metabolic History: Reports: Obesity/BMI 30+ Hematologic History: Reports: Anemia, Blood Transfusion(s), Iron Deficiency Immunologic History: Reports: None Oncologic (Cancer) History: Reports: None Dermatologic History: Reports: None - Infectious Disease History Infectious Disease History: Reports: Measles - Past Surgical History Head Surgeries/Procedures: Reports: None HEENT Surgical History: Reports: Cataract Surgery, Other (See Below) Other HEENT Surgeries/Procedures: CORNEA TRANSPLANT X2 Cardiovascular Surgical History: Reports: Pacer GI Surgical History: Reports: Colonoscopy, Colostomy, EGD, Esophageal Dilatation, Hernia Repair/Other, Other (See Below) Other GI Surgeries/Procedures: Umbilical Hernia Repair. esophageal dilatation Female Surgical History: Reports: None Neurological Surgical History: Reports: None Musculoskeletal Surgical History: Reports: None Oncologic Surgical History: Reports: None Dermatological Surgical History: Reports: None Social & Family History - Family History Family Medical History: No Pertinent Family History HEENT: Reports: None Respiratory: Reports: None GI: Reports: None : Reports: None OBGYN: Reports: None Musculoskeletal: Reports: None Neurological: Reports: None Psychiatric: Reports: None Endocrine/Metabolic: Reports: Diabetes, type II Hematologic: Reports: None Immunologic: Reports: None Dermatologic: Reports: None Oncologic: Reports: None - Tobacco Use Tobacco Use Status *Q: Never Tobacco User Second Hand Smoke Exposure: No - Caffeine Use Caffeine Use: Reports: Coffee Caffeine Use Comment: 16 oz daily - Recreational Drug Use Recreational Drug Use: No - Living Situation & Occupation Living situation: Reports: with Family Occupation: Retired ED ROS ENT - Review of Systems Review Of Systems: Comprehensive ROS is negative, except as noted in HPI. ED EXAM, ENT - Physical Exam Exam: See Below Exam Limited By: No Limitations General Appearance: Alert, No Apparent Distress Ears: Normal External Exam. No: Hearing Grossly Normal (decreased) Course - Vital Signs Last Recorded V/S: Last Vital Signs Temp 98.5 F 04/01/20 22:09 Pulse 88 04/01/20 22:09 Resp 16 04/01/20 22:09 BP 91/62 04/01/20 22:09 Pulse Ox 97 04/01/20 22:09 - Orders/Labs/Meds Labs: Laboratory Tests 04/01/20 Range/Units 22:40 WBC 5.7 (5.0-10.0) 10^3/uL RBC 3.70 L (4.2-5.4) 10^6/uL Hgb 9.9 L (12.0-16.0) g/dL Hct 29.9 L (37.0-47.0) % MCV 80.8 (80-100) fL MCH 26.8 L (27.0-34.0) pg MCHC 33.1 (33.0-35.0) g/dL Plt Count 327 (150-450) 10^3/uL Neut % (Auto) 63.4 (42.2-75.2) % Lymph % (Auto) 21.0 (20.5-50.1) % [place] % (Auto) 11.7 H (2-8) % Eos % (Auto) 0.7 L (1.0-3.0) % Baso % (Auto) 3.2 H (0.0-1.0) % Departure - Departure Time of Disposition: 23:00 Disposition: Home, Self-Care 01 Condition: Good Clinical Impression: Epistaxis - Discharge Information *PRESCRIPTION DRUG MONITORING PROGRAM REVIEWED*: No *COPY OF PRESCRIPTION DRUG MONITORING REPORT IN PATIENT NAEL: No Instructions: Nosebleed, [id number] Referrals: PCP,None [Primary Care Provider] - Forms: ED Department Discharge Additional Instructions: humdification continue antibiotic and other home medications avoid bending over no nose picking follow up if recurrence and unable to stop with pressure Sepsis Event Note (ED) - Evaluation Sepsis Screening Result: No Definite Risk - Focused Exam Vital Signs: Vital Signs Temp Pulse Resp BP Pulse Ox 04/01/20 22:09 98.5 F 88 16 91/62 97
== END 2020-04-01 23:12 | disposition home or self-care (01) ==
LOC: DL.ED 20:17
DX: R04.0 Epistaxis (principal); I48.91 Unspecified atrial fibrillation; E78.00 Pure hypercholesterolemia, unspecified; J45.909 Unspecified asthma, uncomplicated; K21.9 Gastro-esophageal reflux disease without esophagitis; E66.9 Obesity, unspecified; Z68.20 Body mass index [BMI] 20.0-20.9, adult; Z86.711 Personal history of pulmonary embolism; Z95.0 Presence of cardiac pacemaker; Z88.1 Allergy status to other antibiotic agents; Z88.5 Allergy status to narcotic agent; Z79.899 Other long term (current) drug therapy; Z79.01 Long term (current) use of anticoagulants
CPT/HCPCS: 36415; 85025; 99282; 99283

== ENCOUNTER 2020-05-13 00:37 | Emergency (ER) | payer MEDICARE, OTHER ==
[2020-05-13] MEDS ORDERED: Phenylephrine 0.5% Nasal Spray 15 ML Bot NASLF ONE (00:45)
[2020-05-13] MEDS ORDERED: Lidocaine 1% with EPINEPHrine 1:100,000 20 ML MDV INJECT ONE (00:48)
[2020-05-13] MEDS ORDERED: Silver Nitrate Applicator Each TOP ONE (00:48)
--- NOTE | 2020-05-13 00:52 | EDM.PDOC ---
ED HPI GENERAL MEDICAL PROBLEM - General Chief Complaint: ENT Problem Stated Complaint: NOSE BLEED SINCE 9:30 PM Time Seen by Provider: 05/13/20 00:51 Source of Information: Reports: Patient History Limitations: Reports: No Limitations - History of Present Illness INITIAL COMMENTS - FREE TEXT/NARRATIVE: c/o on-off recurrent nose bleed past few hours. seems to have stopped now. - Related Data Allergies Allergy/AdvReac Type Severity Reaction Status Date / Time amoxicillin Allergy Rash Verified 05/13/20 01:03 clindamycin Allergy Rash Verified 05/13/20 01:03 oxycodone Allergy Rash Verified 05/13/20 01:03 Home Meds: Home Meds Multivitamins 1 cap PO DAILY 11/01/14 [History] Simvastatin [Zocor] 10 mg PO BEDTIME 11/01/14 [History] Brimonidine [Alphagan 0.2% Ophth Soln] 1 drop EYELF BID 12/02/15 [History] Dorzolamide/Timolol [Cosopt 2%-0.5% Ophth Soln] 1 drop EYELF BID 12/02/15 [History] Mineral Oil/Petrolatum Oint [Lacri-Lube S.O.P Oint] 1 applic EYEBOTH BEDTIME PRN 03/06/16 [History] Acetaminophen 325 mg PO Q6H 04/05/16 [History] Calcium Citrate/Vitamin D3 [Calcium Citrate + D] 1 tab PO BID 04/05/16 [History] Folic Acid 1 mg PO DAILY 04/05/16 [History] Rivaroxaban [Xarelto] 20 mg PO DAILY 04/05/16 [History] Metoprolol Succinate [Toprol XL] 50 mg PO DAILY 05/25/17 [History] Adalimumab [Humira] 40 mg INJECT .[id number] 01/07/20 [History] Carboxymethylcellulose Sodium [Refresh Celluvisc] 1 drop EYEBOTH BEDTIME 01/07/20 [History] Diclofenac Sodium [Voltaren 1% Gel] 1 applic TOP ASDIRECTED 01/07/20 [History] Esomeprazole Magnesium [Nexium] 40 mg PO DAILY 01/07/20 [History] Ketorolac [Acular 0.5% Ophth Soln] 1 drop EYEBOTH ASDIRECTED 01/07/20 [History] Cetirizine [ZyrTEC] 10 mg PO DAILY 01/11/20 [History] Cholecalciferol (Vitamin D3) [Vitamin D3] 50 mcg PO DAILY 01/11/20 [History] Leflunomide [Arava] 10 mg PO DAILY 01/11/20 [History] Zinc 50 mg PO DAILY 01/11/20 [History] Nintedanib Esylate [Ofev] 150 mg PO BID 05/13/20 [History] Past Medical History HEENT History: Reports: Cataract, Glaucoma, Impaired Vision Other HEENT History: left eye blind; WEARS CORRECTIVE LENSES; NO VISION ON LEFT SIDE; UPPER AND LOWER DENTURE PLATE Cardiovascular History: Reports: Afib, High Cholesterol, Pacemaker Respiratory History: Reports: Asthma, PE, Pneumonia, Recurrent, Pulmonary Fibrosis Other Respiratory History: pulmonary fibrosis Gastrointestinal History: Reports: GERD, GI Bleed, Hiatal Hernia Other Gastrointestinal History: Hx of GI Bleed Genitourinary History: Reports: None, Other (See Below) Other Genitourinary History: bilateral renal cysts [place] History: Reports: None Musculoskeletal History: Reports: Arthritis, Osteoporosis, RA, Other (See Below) Other Musculoskeletal History: Rheumatoid Arthritis Neurological History: Reports: None Psychiatric History: Reports: None Endocrine/Metabolic History: Reports: Obesity/BMI 30+ Hematologic History: Reports: Anemia, Blood Transfusion(s), Iron Deficiency Immunologic History: Reports: None Oncologic (Cancer) History: Reports: None Dermatologic History: Reports: None - Infectious Disease History Infectious Disease History: Reports: Measles - Past Surgical History Head Surgeries/Procedures: Reports: None HEENT Surgical History: Reports: Cataract Surgery, Other (See Below) Other HEENT Surgeries/Procedures: CORNEA TRANSPLANT X2 Cardiovascular Surgical History: Reports: Pacer GI Surgical History: Reports: Colonoscopy, Colostomy, EGD, Esophageal Dilatatio n, Hernia Repair/Other, Other (See Below) Other GI Surgeries/Procedures: Umbilical Hernia Repair. esophageal dilatation Female Surgical History: Reports: None Neurological Surgical History: Reports: None Musculoskeletal Surgical History: Reports: None Oncologic Surgical History: Reports: None Dermatological Surgical History: Reports: None Social & Family History - Family History Family Medical History: No Pertinent Family History HEENT: Reports: None Respiratory: Reports: None GI: Reports: None : Reports: None OBGYN: Reports: None Musculoskeletal: Reports: None Neurological: Reports: None Psychiatric: Reports: None Endocrine/Metabolic: Reports: Diabetes, type II Hematologic: Reports: None Immunologic: Reports: None Dermatologic: Reports: None Oncologic: Reports: None - Caffeine Use Caffeine Use: Reports: Coffee Caffeine Use Comment: 16 oz daily - Living Situation & Occupation Living situation: Reports: with Family Occupation: Retired ED ROS ENT - Review of Systems Review Of Systems: Comprehensive ROS is negative, except as noted in HPI. ED EXAM, ENT - Physical Exam Exam: See Below Exam Limited By: No Limitations General Appearance: Alert, WD/WN, Mild Distress, Other (discomfort) Ears: Hearing Grossly Normal Nose: Active Bleeding, Other (left hasslebach) Mouth/Throat: Normal Inspection Head: Atraumatic Neck: Non-Tender, Full Range of Motion Respiratory/Chest: No Respiratory Distress Cardiovascular: Regular Rate, Rhythm GI/Abdominal: Soft, Non-Tender (Female) Exam: Deferred Rectal (Female) Exam: Deferred Psychiatric: Flat Affect Skin: Warm, Dry, Normal Color Lymphatic: No Adenopathy ED ENT PROCEDURES - Epistaxis Procedure Indication: Epistaxis Recent anticoagulants/antiplatlets: Yes Uncontrolled HTN: No Recent septal/nasal surgery: No Site of bleeding: Left Nare, Anterior Topical Meds: Other (lido with epi 1%) Ice pack to area: No Chemical cautery: Silver Nitrate Topical Anterior Packing: Nasal Tampon Complications: No Course - Vital Signs Last Recorded V/S: Last Vital Signs Temp 36.1 C 05/13/20 00:51 Pulse 102 H 05/13/20 00:51 Resp 18 05/13/20 00:51 BP 128/88 05/13/20 00:51 Pulse Ox 93 L 05/13/20 00:51 - Orders/Labs/Meds Labs: Laboratory Tests 05/13/20 05/13/20 05/13/20 Range/Units 00:50 00:50 00:50 WBC 5.2 (5.0-10.0) 10^3/uL RBC 4.11 L (4.2-5.4) 10^6/uL Hgb 11.6 L D (12.0-16.0) g/dL Hct 35.1 L (37.0-47.0) % MCV 85.4 D (80-100) fL MCH 28.2 (27.0-34.0) pg MCHC 33.0 (33.0-35.0) g/dL Plt Count 221 D (150-450) 10^3/uL Neut % (Auto) 40.1 L (42.2-75.2) % Lymph % (Auto) 44.8 (20.5-50.1) % [place] % (Auto) 8.8 H (2-8) % Eos % (Auto) 2.5 (1.0-3.0) % Baso % (Auto) 3.8 H (0.0-1.0) % PT 16.3 H D (9.0-12.0) SEC INR 1.7 H (0.9-1.2) Sodium 136 (136-145) mmol/L Potassium 3.4 L (3.5-5.1) mmol/L Chloride 100 (98-107) mmol/L Carbon Dioxide 27 (21-32) mmol/L Anion Gap 12.4 (7-13) mEq/L BUN 9 (7-18) mg/dL Creatinine 0.84 (0.55-1.02) mg/dL Est Cr Clr Drug Dosing 45.77 mL/min Estimated GFR (MDRD) > 60 BUN/Creatinine Ratio 10.7 (No establ ref range) Glucose 125 H (74-99) mg/dL Calcium 8.5 (8.5-10.1) mg/dL Total Bilirubin 0.4 (0.2-1.0) mg/dL AST 20 (15-37) U/L ALT 12 L (14-59) U/L Alkaline Phosphatase 136 H (46-116) U/L Total Protein 8.3 H (6.4-8.2) g/dL Albumin 3.0 L (3.4-5.0) g/dL Globulin 5.3 Albumin/Globulin Ratio 0.57 Meds: Medications Discontinued Medications Generic Name Dose Route Start Last Admin Trade Name Freq PRN Reason Stop Dose Admin Lidocaine/Epinephrine 20 ml 05/13/20 00:48 05/13/20 00:58 Xylocaine 1% With Epinephrine 1:100,000 INJECT 05/13/20 00:49 20 ml ONETIME ONE Administration Phenylephrine HCl 1 ml 05/13/20 00:45 05/13/20 00:58 José Luis-Synephrine 0.5% Regular Nasal [place] NASLF 05/13/20 00:46 1 ml ONETIME ONE Administration Silver Nitrate 1 each 05/13/20 00:48 05/13/20 00:58 Silver Nitrate TOP 05/13/20 00:49 1 each ONETIME ONE Administration - Re-Assessments/Exams Free Text/Narrative Re-Assessment/Exam: 05/13/20 01:58 re-exam; no further bleeding s/p nasal tampon insertion. Departure - Departure Time of Disposition: 01:58 Disposition: Home, Self-Care 01 Condition: Good Clinical Impression: Anterior epistaxis - Discharge Information Instructions: Nosebleed, [id number] Referrals: PCP,None [Primary Care Provider] - Forms: ED Department Discharge Additional Instructions: 1) return Saturday for nose packing removal 2) DO NOT take Xaralto tomorrow and Saturday. 3) take Xaaralto Saturday only. 4) resume Xaralto Saturday 5) follow up at clinic Sepsis Event Note (ED) - Focused Exam Vital Signs: Vital Signs Temp Pulse Resp BP Pulse Ox 05/13/20 00:51 36.1 C 102 H 18 128/88 93 L
[2020-05-13 00:56] VITALS: BP 128/88; PULSE 102
[2020-05-13 01:14] LABS: ANION GAP 12.4 mEq/L (7-13); CHLORIDE,CL 100 mmol/L (98-107); SODIUM,NA 136 mmol/L (136-145)
== END 2020-05-13 02:10 | disposition home or self-care (01) ==
LOC: DL.ED 00:37
DX: R04.0 Epistaxis (principal); E78.00 Pure hypercholesterolemia, unspecified; I48.91 Unspecified atrial fibrillation; J45.909 Unspecified asthma, uncomplicated; K21.9 Gastro-esophageal reflux disease without esophagitis; E66.9 Obesity, unspecified; Z79.01 Long term (current) use of anticoagulants; Z79.899 Other long term (current) drug therapy; Z86.711 Personal history of pulmonary embolism
CPT/HCPCS: 30901; 36415; 80053; 85025; 85610; 99283-25; A9270-GY

== ENCOUNTER 2020-05-15 13:53 | Emergency (ER) | payer MEDICARE ==
[2020-05-15 14:34] VITALS: BP 107/58; PULSE 78
--- NOTE | 2020-05-15 15:08 | EDM.PDOC ---
ED HPI GENERAL MEDICAL PROBLEM - General Chief Complaint: ENT Problem Stated Complaint: SOMETHING IN NOSE?NEEDS REMOVED Time Seen by Provider: 05/15/20 15:00 Source of Information: Reports: Patient, RN, RN Notes Reviewed History Limitations: Reports: No Limitations - History of Present Illness INITIAL COMMENTS - FREE TEXT/NARRATIVE: Patient is an 84-year-old female who presents to ER to have packing removed from her left nare. Patient was seen on 05/13/2020 for epistaxis. Left nare was packed. Patient has had no further bleeding or bleeding around the packing. Patient has no further concerns at this time. Onset: Gradual - Related Data Allergies Allergy/AdvReac Type Severity Reaction Status Date / Time amoxicillin Allergy Rash Verified 05/13/20 01:03 clindamycin Allergy Rash Verified 05/13/20 01:03 oxycodone Allergy Rash Verified 05/13/20 01:03 Home Meds: Home Meds Multivitamins 1 cap PO DAILY 11/01/14 [History] Simvastatin [Zocor] 10 mg PO BEDTIME 11/01/14 [History] Brimonidine [Alphagan 0.2% Ophth Soln] 1 drop EYELF BID 12/02/15 [History] Dorzolamide/Timolol [Cosopt 2%-0.5% Ophth Soln] 1 drop EYELF BID 12/02/15 [History] Mineral Oil/Petrolatum Oint [Lacri-Lube S.O.P Oint] 1 applic EYEBOTH BEDTIME PRN 03/06/16 [History] Acetaminophen 325 mg PO Q6H 04/05/16 [History] Calcium Citrate/Vitamin D3 [Calcium Citrate + D] 1 tab PO BID 04/05/16 [History] Folic Acid 1 mg PO DAILY 04/05/16 [History] Rivaroxaban [Xarelto] 20 mg PO DAILY 04/05/16 [History] Metoprolol Succinate [Toprol XL] 50 mg PO DAILY 05/25/17 [History] Adalimumab [Humira] 40 mg INJECT .[id number] 01/07/20 [History] Carboxymethylcellulose Sodium [Refresh Celluvisc] 1 drop EYEBOTH BEDTIME 01/07/20 [History] Diclofenac Sodium [Voltaren 1% Gel] 1 applic TOP ASDIRECTED 01/07/20 [History] Esomeprazole Magnesium [Nexium] 40 mg PO DAILY 01/07/20 [History] Ketorolac [Acular 0.5% Ophth Soln] 1 drop EYEBOTH ASDIRECTED 01/07/20 [History] Cetirizine [ZyrTEC] 10 mg PO DAILY 01/11/20 [History] Cholecalciferol (Vitamin D3) [Vitamin D3] 50 mcg PO DAILY 01/11/20 [History] Leflunomide [Arava] 10 mg PO DAILY 01/11/20 [History] Zinc 50 mg PO DAILY 01/11/20 [History] Nintedanib Esylate [Ofev] 150 mg PO BID 05/13/20 [History] Past Medical History HEENT History: Reports: Cataract, Epistaxis, Glaucoma, Impaired Vision Other HEENT History: left eye blind; WEARS CORRECTIVE LENSES; NO VISION ON LEFT SIDE; UPPER AND LOWER DENTURE PLATE Cardiovascular History: Reports: Afib, High Cholesterol, Pacemaker Respiratory History: Reports: Asthma, Interstitial Lung Disease, PE, Pneumonia, Recurrent, Pulmonary Fibrosis Other Respiratory History: pulmonary fibrosis Gastrointestinal History: Reports: GERD, GI Bleed, Hiatal Hernia Other Gastrointestinal History: Hx of GI Bleed Genitourinary History: Reports: Other (See Below) Other Genitourinary History: bilateral renal cysts [employer] History: Reports: None Musculoskeletal History: Reports: Arthritis, Osteoporosis, RA, Other (See Below) Other Musculoskeletal History: Rheumatoid Arthritis Neurological History: Reports: None Psychiatric History: Reports: None Endocrine/Metabolic History: Reports: Obesity/BMI 30+ Hematologic History: Reports: Anemia, Blood Transfusion(s), Iron Deficiency Immunologic History: Reports: None Oncologic (Cancer) History: Reports: None Dermatologic History: Reports: None - Infectious Disease History Infectious Disease History: Reports: Measles - Past Surgical History Head Surgeries/Procedures: Reports: None HEENT Surgical History: Reports: Cataract Surgery, Other (See Below) Other HEENT Surgeries/Procedures: CORNEA TRANSPLANT X2 Cardiovascular Surgical History: Reports: Pacer GI Surgical History: Reports: Colonoscopy, Colostomy, EGD, Esophageal Dilatation, Hernia Repair/Other, Other (See Below) Other GI Surgeries/Procedures: Umbilical Hernia Repair. esophageal dilatation Female Surgical History: Reports: None Neurological Surgical History: Reports: None Musculoskeletal Surgical History: Reports: None Oncologic Surgical History: Reports: None Dermatological Surgical History: Reports: None Social & Family History - Family History Family Medical History: No Pertinent Family History HEENT: Reports: None Respiratory: Reports: None GI: Reports: None : Reports: None OBGYN: Reports: None Musculoskeletal: Reports: None Neurological: Reports: None Psychiatric: Reports: None Endocrine/Metabolic: Reports: Diabetes, type II Hematologic: Reports: None Immunologic: Reports: None Dermatologic: Reports: None Oncologic: Reports: None - Tobacco Use Tobacco Use Status *Q: Never Tobacco User - Caffeine Use Caffeine Use: Reports: Coffee Caffeine Use Comment: 16 oz daily - Recreational Drug Use Recreational Drug Use: No - Living Situation & Occupation Living situation: Reports: with Family Occupation: Retired ED ROS ENT - Review of Systems Review Of Systems: Comprehensive ROS is negative, except as noted in HPI. ED EXAM, ENT - Physical Exam Exam: See Below Exam Limited By: No Limitations General Appearance: Alert, WD/WN, No Apparent Distress Eye Exam: Bilateral Eye: EOMI, Normal Inspection Ears: Normal External Exam, Hearing Grossly Normal Nose: Other (Left nare has packing). No: Active Bleeding Mouth/Throat: Normal Inspection, Normal Gums, Normal Lips, Normal Oropharynx, Normal Teeth Head: Atraumatic, Normocephalic Neck: Normal Inspection, Supple, Non-Tender, Full Range of Motion Respiratory/Chest: No Respiratory Distress, Lungs Clear, No Accessory Muscle Use, Chest Non-Tender, Decreased Breath Sounds Cardiovascular: Normal Peripheral Pulses, Regular Rate, Rhythm, No Edema, No Gallop, No JVD, No Murmur, No Rub GI/Abdominal: Normal Bowel Sounds, Soft, Non-Tender, No Organomegaly, No Distention, No Abnormal Bruit, No Mass (Female) Exam: Deferred Rectal (Female) Exam: Deferred Back: Normal Inspection, Full Range of Motion Extremities: Normal Inspection, Normal Range of Motion, Non-Tender, No Pedal Edema, Normal Capillary Refill Neurological: Alert, Oriented, Normal Cognition Psychiatric: Normal Affect, Normal Mood Skin: Warm, Dry, Intact, Normal Color, No Rash Lymphatic: No Adenopathy ED ENT PROCEDURES - Foreign Body Removal Indication:: Removal of nasal packing placed on 05/13 for epistaxis Consent Obtained: Patient Performing Doctor:: Sherine Kessler Foreign Body Other Location Comment:: Left nare Anesthesia Type: None Complications: No Comments: Packing has foul odor to it when removed. Patient will be placed on antibiotics. Patient allergic to Augmentin. Course - Vital Signs Last Recorded V/S: Last Vital Signs Temp 96.8 F L 05/15/20 14:32 Pulse 78 05/15/20 14:32 Resp 16 05/15/20 14:32 BP 107/58 L 05/15/20 14:32 Pulse Ox 96 05/15/20 14:32 Departure - Departure Time of Disposition: 15:07 Disposition: Home, Self-Care 01 Condition: Good Clinical Impression: Encounter for removal of nasal packing - Discharge Information *PRESCRIPTION DRUG MONITORING PROGRAM REVIEWED*: No *COPY OF PRESCRIPTION DRUG MONITORING REPORT IN PATIENT NAEL: No Forms: ED Department Discharge Additional Instructions: RX: Azithromycin Follow up with your primary care facility if worsening of symptoms Use vaseline in the nostrils to prevent dryness Sepsis Event Note (ED) - Evaluation Sepsis Screening Result: No Definite Risk - Focused Exam Vital Signs: Vital Signs Temp Pulse Resp BP Pulse Ox 05/15/20 14:32 96.8 F L 78 16 107/58 L 96
== END 2020-05-15 15:16 | disposition home or self-care (01) ==
LOC: DL.ED 13:53
DX: Z48.00 Encounter for change or removal of nonsurgical wound dressing (principal); E66.9 Obesity, unspecified; I48.91 Unspecified atrial fibrillation; J45.909 Unspecified asthma, uncomplicated; K21.9 Gastro-esophageal reflux disease without esophagitis; Z88.0 Allergy status to penicillin; Z88.1 Allergy status to other antibiotic agents; Z88.5 Allergy status to narcotic agent; Z79.01 Long term (current) use of anticoagulants; Z79.899 Other long term (current) drug therapy; Z68.1 Body mass index [BMI] 19.9 or less, adult
CPT/HCPCS: 99282

== ENCOUNTER 2020-05-15 15:22 | Emergency (ER) | payer MEDICARE | END 2020-05-15 15:31 | LOC: DL.ED 15:22 | DX: Z53.8 Procedure and treatment not carried out for other reasons (principal) ==

== ENCOUNTER 2021-05-01 12:07 | Emergency (ER) | payer MEDICARE, OTHER ==
[2021-05-01 12:05] VITALS: BP 124/90; PULSE 123
[2021-05-01 13:04] LABS: PTT,PARTIAL THROMBOPLSTIN TIME 24.5 SEC (22.0-34.0)
--- NOTE | 2021-05-01 13:09 | EDM.PDOC ---
ED HPI GENERAL MEDICAL PROBLEM - General Chief Complaint: Respiratory Problem Time Seen by Provider: 05/01/21 12:45 Source of Information: Reports: Patient, EMS, Provider ([facility]), RN, RN Notes Reviewed History Limitations: Reports: No Limitations - History of Present Illness INITIAL COMMENTS - FREE TEXT/NARRATIVE: Reynaldo is an 85 y/o female who presents to the ED via [facility] at the request of her provider at [facility] for complaints of progressive shortness of breath and hypoxia. Per provider report, the patient tested positive for COVID-19 13 days ago; she is fully vaccinated and boostered, however was not treated with monoclonal antibodies or steroids. She reports the patient's O2 saturations in clinic were mid-80s with RR mid 30s. Upon arrival to this facility to patient is alert and oriented to all spheres with RR mid 20s. The patient notes her work of breathing and sensation of SOB have improved since O2 administration. She notes her cough has somewhat improved, however he fatigue lingers. She denies fever, shaking chills, vision changes, dizziness, sore throat, chest pain/pressure, palpitations, dyspepsia, nausea, vomiting, abdominal pain, or diarrhea. She attests to incontinence at baseline. She denies a history of a COVID-19 infection. She denies tobacco, alcohol, or recreational drug use. - Related Data Allergies Allergy/AdvReac Type Severity Reaction Status Date / Time amoxicillin Allergy Rash Verified 05/01/21 12:09 clindamycin Allergy Rash Verified 05/01/21 12:09 oxycodone Allergy Rash Verified 05/01/21 12:09 Home Meds: Home Meds Multivitamins 1 cap PO DAILY 11/01/14 [History] Simvastatin [Zocor] 10 mg PO BEDTIME 11/01/14 [History] Brimonidine [Alphagan 0.2% Ophth Soln] 1 drop EYELF BID 12/02/15 [History] Dorzolamide/Timolol [Cosopt 2%-0.5% Ophth Soln] 1 drop EYELF BID 12/02/15 [History] Mineral Oil/Petrolatum Oint [Lacri-Lube S.O.P Oint] 1 applic EYEBOTH BEDTIME PRN 03/06/16 [History] Acetaminophen 325 mg PO Q6H 11/17/16 [History] Calcium Citrate/Vitamin D3 [Calcium Citrate + D] 1 tab PO BID 04/05/16 [History] Folic Acid 1 mg PO DAILY 04/05/16 [History] Rivaroxaban [Xarelto] 20 mg PO DAILY 04/05/16 [History] Metoprolol Succinate [Toprol XL] 50 mg PO DAILY 05/25/17 [History] Adalimumab [Humira] 40 mg INJECT .[id number] 01/07/20 [History] Carboxymethylcellulose Sodium [Refresh Celluvisc] 1 drop EYEBOTH BEDTIME 01/07/20 [History] Diclofenac Sodium [Voltaren 1% Gel] 1 applic TOP ASDIRECTED 01/07/20 [History] Esomeprazole Magnesium [Nexium] 40 mg PO DAILY 01/07/20 [History] Ketorolac [Acular 0.5% Ophth Soln] 1 drop EYEBOTH ASDIRECTED 01/07/20 [History] Cetirizine [ZyrTEC] 10 mg PO DAILY 01/11/20 [History] Cholecalciferol (Vitamin D3) [Vitamin D3] 50 mcg PO DAILY 01/11/20 [History] Leflunomide [Arava] 10 mg PO DAILY 01/11/20 [History] Zinc 50 mg PO DAILY 01/11/20 [History] Nintedanib Esylate [Ofev] 150 mg PO BID 05/13/20 [History] Past Medical History HEENT History: Reports: Cataract, Epistaxis, Glaucoma, Impaired Vision Other HEENT History: left eye blind; WEARS CORRECTIVE LENSES; NO VISION ON LEFT SIDE; UPPER AND LOWER DENTURE PLATE Cardiovascular History: Reports: Afib, High Cholesterol, Pacemaker Respiratory History: Reports: Asthma, Interstitial Lung Disease, PE, Pneumonia, Recurrent, Pulmonary Fibrosis Other Respiratory History: pulmonary fibrosis Gastrointestinal History: Reports: GERD, GI Bleed, Hiatal Hernia Other Gastrointestinal History: Hx of GI Bleed Genitourinary History: Reports: Other (See Below) Other Genitourinary History: bilateral renal cysts [employer] History: Reports: None Musculoskeletal History: Reports: Arthritis, Osteoporosis, RA, Other (See Below) Other Musculoskeletal History: Rheumatoid Arthritis Neurological History: Reports: None Psychiatric History: Reports: None Endocrine/Metabolic History: Reports: Obesity/BMI 30+ Hematologic History: Reports: Anemia, Blood Transfusion(s), Iron Deficiency Immunologic History: Reports: None Oncologic (Cancer) History: Reports: None Dermatologic History: Reports: None - Infectious Disease History Infectious Disease History: Reports: Measles - Past Surgical History Head Surgeries/Procedures: Reports: None HEENT Surgical History: Reports: Cataract Surgery, Other (See Below) Other HEENT Surgeries/Procedures: CORNEA TRANSPLANT X2 Cardiovascular Surgical History: Reports: Pacer GI Surgical History: Reports: Colonoscopy, Colostomy, EGD, Esophageal Dilatation, Hernia Repair/Other, Other (See Below) Other GI Surgeries/Procedures: Umbilical Hernia Repair. esophageal dilatation Female Surgical History: Reports: None Neurological Surgical History: Reports: None Musculoskeletal Surgical History: Reports: None Oncologic Surgical History: Reports: None Dermatological Surgical History: Reports: None Social & Family History - Family History Family Medical History: No Pertinent Family History HEENT: Reports: None Respiratory: Reports: None GI: Reports: None : Reports: None OBGYN: Reports: None Musculoskeletal: Reports: None Neurological: Reports: None Psychiatric: Reports: None Endocrine/Metabolic: Reports: Diabetes, type II Hematologic: Reports: None Immunologic: Reports: None Dermatologic: Reports: None Oncologic: Reports: None - Tobacco Use Tobacco Use Status *Q: Never Tobacco User Second Hand Smoke Exposure: No - Caffeine Use Caffeine Use: Reports: Coffee Caffeine Use Comment: 16 oz daily - Recreational Drug Use Recreational Drug Use: No - Living Situation & Occupation Living situation: Reports: with Family Occupation: Retired ED ROS GENERAL - Review of Systems Review Of Systems: Comprehensive ROS is negative, except as noted in HPI. ED EXAM, GENERAL - Physical Exam Exam: See Below Exam Limited By: No Limitations General Appearance: Alert, No Apparent Distress, Thin Eye Exam: Right Eye: Other (Cataract), Left Eye: Vision Changes (Unable to open eyelid, chronic) Ears: Normal External Exam, Hearing Grossly Normal Nose: Normal Inspection Throat/Mouth: Normal Inspection, Normal Oropharynx, Normal Voice, No Airway Compromise Head: Atraumatic, Normocephalic Neck: Normal Inspection, Full Range of Motion Respiratory/Chest: Chest Non-Tender, Respiratory Distress (Tachypnea), Rhonchi (Diffuse to all corona), Accessory Muscle Use Cardiovascular: Normal Peripheral Pulses, Regular Rate, Rhythm, No Edema, No Gallop, No JVD, No Murmur, No Rub, Tachycardia Peripheral Pulses: 2+: Radial (L), Radial (R) GI/Abdominal: Normal Bowel Sounds, Soft, Non-Tender, No Distention, No Abnormal Bruit, No Mass, Pelvis Stable (Female) Exam: Deferred Rectal (Female) Exam: Deferred Back Exam: Normal Inspection Extremities: Normal Inspection, Normal Range of Motion, Non-Tender, No Pedal Edema, Normal Capillary Refill Neurological: Alert, Oriented, CN II-XII Intact, Normal Cognition, No Motor/Sensory Deficits Psychiatric: Normal Affect, Normal Mood Skin Exam: Warm, Dry, Intact, Normal Color, No Rash. No: Cyanosis, Jaundice, Mottled, Pallor Course - Vital Signs Last Recorded V/S: Last Vital Signs Temp 99.2 F 05/01/21 12:00 Pulse 123 H 05/01/21 12:00 Resp 26 H 05/01/21 12:00 BP 124/90 05/01/21 12:00 Pulse Ox 99 05/01/21 12:00 - Orders/Labs/Meds Labs: Laboratory Tests 05/01/21 05/01/21 05/01/21 Range/Units 12:40 12:40 12:40 WBC 4.6 L (5.0-10.0) 10^3/uL RBC 4.12 L (4.2-5.4) 10^6/uL Hgb 9.6 L D (12.0-16.0) g/dL Hct 30.4 L (37.0-47.0) % MCV 73.8 L D (80-100) fL MCH 23.3 L (27.0-34.0) pg MCHC 31.6 L (33.0-35.0) g/dL Plt Count 334 D (150-450) 10^3/uL Neut % (Auto) 77.0 H (42.2-75.2) % Lymph % (Auto) 9.6 L (20.5-50.1) % Thayer % (Auto) 7.0 (2-8) % Eos % (Auto) 3.3 H (1.0-3.0) % Baso % (Auto) 3.1 H (0.0-1.0) % PT 12.2 H (9.0-12.0) SEC INR 1.2 (0.9-1.2) APTT 24.5 (22.0-34.0) SEC D-Dimer, Quantitative 3730 H (0-400) ng/mL Sodium 131 L (136-145) mmol/L Potassium 4.1 (3.5-5.1) mmol/L Chloride 96 L (98-107) mmol/L Carbon Dioxide 25 (21-32) mmol/L Anion Gap 14.1 H (7-13) mEq/L BUN 12 (7-18) mg/dL Creatinine 1.03 H (0.55-1.02) mg/dL Est Cr Clr Drug Dosing TNP Estimated GFR (MDRD) 51 BUN/Creatinine Ratio 11.7 (No establ ref range) Glucose 133 H (70-99) mg/dL Lactic Acid (0.4-2.0) mmol/L Calcium 9.7 (8.5-10.1) mg/dL Total Bilirubin 0.5 (0.2-1.0) mg/dL AST 25 (15-37) U/L ALT 14 (14-59) U/L Alkaline Phosphatase 150 H (46-116) U/L Troponin I High Sens 20 (<=51) pg/mL C-Reactive Protein 13.2 H (0.0-0.9) mg/dL B-Natriuretic Peptide 161 H (0-100) pg/ml Total Protein 7.9 (6.4-8.2) g/dL Albumin 2.3 L (3.4-5.0) g/dL Globulin 5.6 Albumin/Globulin Ratio 0.41 12/13/21 Range/Units 12:40 WBC (5.0-10.0) 10^3/uL RBC (4.2-5.4) 10^6/uL Hgb (12.0-16.0) g/dL Hct (37.0-47.0) % MCV (80-100) fL MCH (27.0-34.0) pg MCHC (33.0-35.0) g/dL Plt Count (150-450) 10^3/uL Neut % (Auto) (42.2-75.2) % Lymph % (Auto) (20.5-50.1) % Thayer % (Auto) (2-8) % Eos % (Auto) (1.0-3.0) % Baso % (Auto) (0.0-1.0) % PT (9.0-12.0) SEC INR (0.9-1.2) APTT (22.0-34.0) SEC D-Dimer, Quantitative (0-400) ng/mL Sodium (136-145) mmol/L Potassium (3.5-5.1) mmol/L Chloride (98-107) mmol/L Carbon Dioxide (21-32) mmol/L Anion Gap (7-13) mEq/L BUN (7-18) mg/dL Creatinine (0.55-1.02) mg/dL Est Cr Clr Drug Dosing Estimated GFR (MDRD) BUN/Creatinine Ratio (No establ ref range) Glucose (70-99) mg/dL Lactic Acid 1.8 (0.4-2.0) mmol/L Calcium (8.5-10.1) mg/dL Total Bilirubin (0.2-1.0) mg/dL AST (15-37) U/L ALT (14-59) U/L Alkaline Phosphatase (46-116) U/L Troponin I High Sens (<=51) pg/mL C-Reactive Protein (0.0-0.9) mg/dL B-Natriuretic Peptide (0-100) pg/ml Total Protein (6.4-8.2) g/dL Albumin (3.4-5.0) g/dL Globulin Albumin/Globulin Ratio Meds: Medications Discontinued Medications Generic Name Dose Route Start Last Admin Trade Name Freq PRN Reason Stop Dose Admin Heparin Sodium (Porcine) 4,000 units 05/01/21 15:17 05/01/21 15:32 Heparin Sodium 5,000 Units/Ml Vial IVPUSH 05/01/21 15:18 4,000 units .BOLUS ONE Administration Heparin Sodium/Sodium Chloride 25,000 units in 500 mls @ 20.248 mls/hr 05/01/21 15:30 05/01/21 15:32 Heparin 25,000 Units In 1/2 Ns 500 Ml IV 18 units/kg/hr TITRATE STEVIE 20.248 mls/hr Administration Protocol 18 UNITS/KG/HR Iopamidol 100 ml 05/01/21 13:35 05/01/21 14:27 Iopamidol 755 Mg/Ml 100 Ml Bottle IVPUSH 05/01/21 13:36 65 ml ONETIME ONE Administration - Re-Assessments/Exams Free Text/Narrative Re-Assessment/Exam: 05/01/21 D-dimer elevated, will obtain CT chest w/ to r/o PE Heparin gtt and bolus initiated for right lower lung PE. Case discussed with Nirmal Alcocer PA-C at [facility] in [place], [place] who accepted patient for a lateral transfer as this facility has no staffed inpatient beds. Findings of examination, lab work, imaging, and conversation with Nirmal reviewed with patient and daughter. Patient and daughter verbalized understanding and agreement with the plan of care. Departure - Departure Time of Disposition: 16:40 Disposition: DC/Tfer to [facility] 02 Clinical Impression: Hypoxia, Hyponatremia, Microcytic hypochromic anemia Pulmonary embolism Qualifiers: Pulmonary embolism type: other Chronicity: unspecified Acute cor pulmonale presence: without acute cor pulmonale Qualified Code(s): I26.99 - Other pulmonary embolism without acute cor pulmonale - Discharge Information Forms: ED Department Discharge, Interfacility Transfer [facility] Sepsis Event Note (ED) - Evaluation Sepsis Screening Result: Possible Sepsis Risk
[2021-05-01 13:12] LABS: ANION GAP 14.1 mEq/L (7-13); CHLORIDE,CL 96 mmol/L (98-107); SODIUM,NA 131 mmol/L (136-145)
[2021-05-01] MEDS ORDERED: Iopamidol 755 Mg/ML 100 ML Bottle IVPUSH ONE (13:35)
--- NOTE | 2021-05-01 15:01 | CT ---
EXAMINATION: Chest w Cont SEX: Female AGE: 85 years CLINICAL HISTORY: 85-year-old 124 pound COVID+ female with abnormally elevated serum D dimer (3700). Chest CT 31 March 2020 when patient was COVID negative revealed "bullous emphysematous; lobar pneumonia (superior segment RLL and posterior segment LLL; low probability PE" r/o pulmonary embolism. Scan technique: Volume acquisition of data from the chest (bony thorax, lungs and mediastinum) obtained during the intravenous administration of 65 cc nonionic Isovue 370 at 4.5 cc/s via injector while patient was lying supine on the Siemens multi slice scanner [place], [place]. All data archived in the PACS system for storage, reformatting axial/sagittal/coronal planes and study (lung, mediastinal, bone and soft tissue windows). Interpretation: Abnormal. 1. Generalized air trapping and numerous scattered cystic/bullous parenchymal lung lesions as demonstrated on March, CT chest i.e. COPD. 2. Normal cardiac silhouette (size and configuration). No pericardial effusion, vascular congestion, alveolar edema or dependent pleural fluid accumulation on the left i.e. no signs of heart failure. 3. *Isolated intraluminal filling defects (thrombus) within the second tier pulmonary artery segments, RLL and small ipsilateral pleural effusion characteristic of pulmonary artery infarct. Proximal pulmonary artery segments are normal. 4. *Numerous new, scattered, peripheral "groundglass opacities (GG0) throughout both lung corona. 5. Reproducible "superior segment RLL consolidation", and now, extensive new consolidation of the anterior/posterior segments of the right lower lobe. Aspiration? Superinfection? 6. No new lung mass lesion or hilar/mediastinal lymphadenopathy. No pneumothorax or pneumomediastinum. 7. Densely calcified but normal caliber ectatic thoracic aorta. 8. Multilevel disc disease; mild kyphosis; hypertrophic spondylosis dorsal spine. 9. Large hiatus hernia incarcerated in the lower middle mediastinum. CONCLUSION: COPD. COVID pneumonia. 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 Possible bacterial pneumonic superinfection (clinical?). No heart failure. No pulmonary artery thrombosis. Hiatus hernia.
[2021-05-01] MEDS ORDERED: Heparin Sodium 5,000 Units/ML Vial IVPUSH ONE (15:17)
[2021-05-01] MEDS ORDERED: Heparin Sodium/0.45% NaCl 25,000 UNITS/500 ML BAG IV SCH (15:30)
== END 2021-05-01 16:49 ==
LOC: DL.ED 12:07
DX: I26.99 Other pulmonary embolism without acute cor pulmonale (principal); D50.9 Iron deficiency anemia, unspecified; R09.02 Hypoxemia; E87.1 Hypo-osmolality and hyponatremia; I48.91 Unspecified atrial fibrillation; E78.00 Pure hypercholesterolemia, unspecified; K21.9 Gastro-esophageal reflux disease without esophagitis; E66.9 Obesity, unspecified; Z95.0 Presence of cardiac pacemaker; Z88.0 Allergy status to penicillin; Z88.1 Allergy status to other antibiotic agents; Z88.5 Allergy status to narcotic agent; Z86.16 Personal history of COVID-19; Z79.01 Long term (current) use of anticoagulants; Z79.899 Other long term (current) drug therapy; Z68.1 Body mass index [BMI] 19.9 or less, adult
CPT/HCPCS: 36415; 71260; 80053; 83605; 83880; 84484; 85025; 85379; 85610; 85730; 86140; 96365; 99285; J1644; Q9967

== ENCOUNTER 2021-05-14 14:02 | Inpatient (IN) | payer MEDICARE, OTHER ==
[2021-05-14] MEDS ORDERED: Sodium Chloride 0.9% 10 ML Syringe FLUSH PRN (14:17)
[2021-05-14] MEDS ORDERED: Albuterol/Ipratropium 3.0-0.5 MG/3 ML Neb Soln NEB ONE (14:18)
[2021-05-14 14:53] LABS: PTT,PARTIAL THROMBOPLSTIN TIME 25.9 SEC (22.0-34.0)
[2021-05-14 15:00] LABS: ANION GAP 10.8 mEq/L (7-13)
--- NOTE | 2021-05-14 15:48 | CT ---
PROCEDURE INFORMATION: Exam: CT Chest Without Contrast; Diagnostic Exam date and time: 05/14/2021 2:30 PM Age: 85 years old Clinical indication: Dyspnea and other: 30 days post covid w/hypoxia/cough/rhonchi/dyspnea TECHNIQUE: Imaging protocol: Diagnostic computed tomography of the chest without contrast. Radiation optimization: All CT scans at this facility use at least one of these dose optimization techniques: automated exposure control; mA and/or kV adjustment per patient size (includes targeted exams where dose is matched to clinical indication); or iterative reconstruction. COMPARISON: CT Chest w Cont 05/01/2021 2:06 PM FINDINGS: Tubes, catheters and devices: A left-sided dual lead pacemaker is present. Lungs: Chronic appearing interstitial changes are present within the lung parenchyma with areas of consolidation and scarring in the lower lobes right greater than left. There is moderate grade bronchiectasis in the lower lobes. This could be post inflammatory change. There is no pulmonary fibrosis. Pleural spaces: Unremarkable. No pneumothorax. No pleural effusion. Heart: Moderate grade coronary atherosclerosis is present. Aorta: [id number] grade atherosclerotic change of the thoracic aorta is present without aneurysm. Lymph nodes: Unremarkable. No enlarged lymph nodes. Diaphragm: Moderate size hiatal hernia is present. Liver: Small low-density lesion within the liver measures less than 1 cm in size and is too small to definitively characterize. Statistically, this likely represents a cyst. Gallbladder and bile ducts: Stones are noted within the gallbladder. There is no gallbladder wall thickening or pericholecystic fluid. Bones/joints: Moderate grade degenerative changes are present within the thoracic spine. No compression fracture or focal lesion identified. Soft tissues: Unremarkable. IMPRESSION: 1. Chronic changes within the lung parenchyma with areas of parenchymal scarring and chronic consolidation. There also areas of moderate grade bronchiectasis predominantly within the lower lobes. These are likely postinflammatory/postinfectious changes. 2. Moderate grade coronary atherosclerosis. 3. Cholelithiasis without acute cholecystitis or biliary tract obstruction. 4. Indeterminate small lesion within the liver. Contrast enhanced CT scan or MRI would provide more definitive characterization. Statistically, this likely represents a cyst.
[2021-05-14] MEDS ORDERED: Sodium Chloride 0.9% 1,000 ML IV SCH (16:00)
--- NOTE | 2021-05-14 16:01 | EDM.PDOC ---
"Scribed by Karyn Ram 05/14/21 1433 for Beba Lacy MD ED HPI GENERAL MEDICAL PROBLEM - General Chief Complaint: Respiratory Problem Stated Complaint: AMBULANCE Time Seen by Provider: 05/14/21 14:17 Source of Information: Reports: Patient, EMS, EMS Notes Reviewed, Old Records, RN, RN Notes Reviewed History Limitations: Reports: No Limitations - History of Present Illness INITIAL COMMENTS - FREE TEXT/NARRATIVE: Pt arrives to ER from home by [facility] with c/o cough, shortness of breath, and generalized weakness. Pt became ill the last week of 2020, and tested positive for COVID on 04/19/21. She was sent to this ER from [facility] on 05/01/21 and was lateral transferred to [place] for admission due to no beds available here or elsewhere. Pt was discharged home on 05/05/21 with discharge diagnosis of P.E. and COVID pneumonia. Pt states she is on Xarelto and has not missed any doses. She uses a nebulizer once a day, but doesn't know what neb. medication she uses. Pt admits to black stool and diarrhea. Denies chest pain, abdominal pain, dysuria, syncope, fevers, or chills. Onset: Gradual Duration: Constant, Getting Worse - Related Data Allergies Allergy/AdvReac Type Severity Reaction Status Date / Time amoxicillin Allergy Rash Verified 05/14/21 14:16 clindamycin Allergy Rash Verified 05/14/21 14:16 oxycodone Allergy Rash Verified 05/14/21 14:16 Home Meds: Home Meds Multivitamins 1 cap PO DAILY 11/01/14 [History] Simvastatin [Zocor] 10 mg PO BEDTIME 11/01/14 [History] Brimonidine [Alphagan 0.2% Ophth Soln] 1 drop EYELF BID 12/02/15 [History] Dorzolamide/Timolol [Cosopt 2%-0.5% Ophth Soln] 1 drop EYELF BID 12/02/15 [History] Mineral Oil/Petrolatum Oint [Lacri-Lube S.O.P Oint] 1 applic EYEBOTH BEDTIME PRN 03/06/16 [History] Acetaminophen 325 mg PO Q6H 04/05/16 [History] Calcium Citrate/Vitamin D3 [Calcium Citrate + D] 1 tab PO BID 04/05/16 [History] Folic Acid 1 mg PO DAILY 04/05/16 [History] Rivaroxaban [Xarelto] 20 mg PO DAILY 04/05/16 [History] Metoprolol Succinate [Toprol XL] 50 mg PO DAILY 05/25/17 [History] Adalimumab [Humira] 40 mg INJECT .[id number] 01/07/20 [History] Carboxymethylcellulose Sodium [Refresh Celluvisc] 1 drop EYEBOTH BEDTIME 01/07/20 [History] Diclofenac Sodium [Voltaren 1% Gel] 1 applic TOP ASDIRECTED 01/07/20 [History] Esomeprazole Magnesium [Nexium] 40 mg PO DAILY 01/07/20 [History] Ketorolac [Acular 0.5% Ophth Soln] 1 drop EYEBOTH ASDIRECTED 01/07/20 [History] Cetirizine [ZyrTEC] 10 mg PO DAILY 01/11/20 [History] Cholecalciferol (Vitamin D3) [Vitamin D3] 50 mcg PO DAILY 01/11/20 [History] Leflunomide [Arava] 10 mg PO DAILY 01/11/20 [History] Zinc 50 mg PO DAILY 01/11/20 [History] Nintedanib Esylate [Ofev] 150 mg PO BID 05/13/20 [History] Past Medical History HEENT History: Reports: Cataract, Epistaxis, Glaucoma, Impaired Vision Other HEENT History: left eye blind; WEARS CORRECTIVE LENSES; NO VISION ON LEFT SIDE; UPPER AND LOWER DENTURE PLATE Cardiovascular History: Reports: Afib, High Cholesterol, Pacemaker Respiratory History: Reports: Asthma, Interstitial Lung Disease, PE, Pneumonia, Recurrent, Pulmonary Fibrosis Other Respiratory History: pulmonary fibrosis Gastrointestinal History: Reports: GERD, GI Bleed, Hiatal Hernia Other Gastrointestinal History: Hx of GI Bleed Genitourinary History: Reports: Other (See Below) Other Genitourinary History: bilateral renal cysts MANAGER PAYER History: Reports: None Musculoskeletal History: Reports: Arthritis, Osteoporosis, RA, Other (See Below) Other Musculoskeletal History: Rheumatoid Arthritis Neurological History: Reports: None Psychiatric History: Reports: None Endocrine/Metabolic History: Reports: Obesity/BMI 30+ Hematologic History: Reports: Anemia, Blood Transfusion(s), Iron Deficiency Immunologic History: Reports: None Oncologic (Cancer) History: Reports: None Dermatologic History: Reports: None - Infectious Disease History Infectious Disease History: Reports: Measles - Past Surgical History Head Surgeries/Procedures: Reports: None HEENT Surgical History: Reports: Cataract Surgery, Other (See Below) Other HEENT Surgeries/Procedures: CORNEA TRANSPLANT X2 Cardiovascular Surgical History: Reports: Pacer GI Surgical History: Reports: Colonoscopy, Colostomy, EGD, Esophageal Dilatation, Hernia Repair/Other, Other (See Below) Other GI Surgeries/Procedures: Umbilical Hernia Repair. esophageal dilatation Female Surgical History: Reports: None Neurological Surgical History: Reports: None Musculoskeletal Surgical History: Reports: None Oncologic Surgical History: Reports: None Dermatological Surgical History: Reports: None Social & Family History - Family History Family Medical History: No Pertinent Family History HEENT: Reports: None Respiratory: Reports: None GI: Reports: None : Reports: None OBGYN: Reports: None Musculoskeletal: Reports: None Neurological: Reports: None Psychiatric: Reports: None Endocrine/Metabolic: Reports: Diabetes, type II Hematologic: Reports: None Immunologic: Reports: None Dermatologic: Reports: None Oncologic: Reports: None - Caffeine Use Caffeine Use: Reports: Coffee Caffeine Use Comment: 16 oz daily - Living Situation & Occupation Living situation: Reports: with Family Occupation: Retired ED ROS GENERAL - Review of Systems Review Of Systems: Comprehensive ROS is negative, except as noted in HPI. ED EXAM, GENERAL - Physical Exam Exam: See Below Exam Limited By: No Limitations General Appearance: Alert, No Apparent Distress, Thin, Other (Chronically ill appearing) Eye Exam: Bilateral Eye: Normal Inspection Nose: Normal Inspection, Normal Mucosa, No Blood Throat/Mouth: Normal Lips, Normal Voice, No Airway Compromise, Other (Dry oral mucosa. No teeth.) Head: Atraumatic, Normocephalic Neck: Normal Inspection, Non-Tender Respiratory/Chest: No Respiratory Distress, No Accessory Muscle Use, Chest Non- Tender, Decreased Breath Sounds, Crackles, Rhonchi. No: Wheezing Cardiovascular: Regular Rate, Rhythm, No Edema GI/Abdominal: Normal Bowel Sounds, Soft, Non-Tender Back Exam: Normal Inspection. No: Vertebral Tenderness Extremities: Normal Inspection, Non-Tender, Normal Capillary Refill Neurological: Alert, Oriented, CN II-XII Intact, Normal Cognition, No Motor/Sensory Deficits Psychiatric: Normal Mood Skin Exam: Warm, Dry, Intact, No Rash, Pallor. No: Ecchymosis, Jaundice, Petechiae #1 Interpretation EKG Date: 05/14/21 Time: 14:33 Rhythm: Other (sinus rhythm, with PVC.) Rate (Beats/Min): 89 QRS: Wide (nonspecific IVCD) ST-T: Normal QT: Normal Comparison: No Change EKG Interpretation Comments: Baseline wander in lead 9s) V5, V6. Course - Vital Signs Last Recorded V/S: Last Vital Signs Temp 96.6 F L 05/14/21 14:16 Pulse 97 05/14/21 14:41 Resp 20 05/14/21 14:16 BP 125/81 05/14/21 14:16 Pulse Ox 93 L 05/14/21 14:16 - Orders/Labs/Meds Orders: Active Orders 24 hr Category Date Time Status Peripheral IV Care [RC] . DIRECTED Care 05/14/21 14:17 Active RT Aerosol Therapy [RC] ASDIRECTED Care 05/14/21 14:18 Active CULTURE BLOOD [BC] Stat Lab 05/14/21 14:26 Received CULTURE BLOOD [BC] Stat Lab 05/14/21 14:30 Received Sodium Chloride 0.9% [Normal Saline] 1,000 ml Med 05/14/21 16:00 Active IV ASDIRECTED Sodium Chloride 0.9% [Saline Flush] Med 05/14/21 14:17 Active 10 ml FLUSH ASDIRECTED PRN Blood Culture x2 Reflex Set [OM.PC] Stat Oth 05/14/21 14:15 Ordered Peripheral IV Insertion Adult [OM.PC] Stat Oth 05/14/21 14:16 Ordered Medication Orders Sodium Chloride (Normal Saline) 1,000 mls @ 100 mls/hr IV ASDIRECTED STEVIE Sodium Chloride (Sodium Chloride 0.9% 10 Ml Syringe) 10 ml FLUSH ASDIRECTED PRN PRN Reason: Keep Vein Open Last Admin: 05/14/21 15:07 Dose: 10 ml Documented by: [email or web address] Labs: Laboratory Tests 05/14/21 05/14/21 05/14/21 Range/Units 14:26 14:26 14:26 WBC 6.4 (5.0-10.0) 10^3/uL RBC 3.75 L (4.2-5.4) 10^6/uL Hgb 8.8 L (12.0-16.0) g/dL Hct 27.6 L (37.0-47.0) % MCV 73.6 L (80-100) fL MCH 23.5 L (27.0-34.0) pg MCHC 31.9 L (33.0-35.0) g/dL Plt Count 412 D (150-450) 10^3/uL Neut % (Auto) 79.1 H (42.2-75.2) % Lymph % (Auto) 7.2 L (20.5-50.1) % [place] % (Auto) 9.9 H (2-8) % Eos % (Auto) 1.3 (1.0-3.0) % Baso % (Auto) 2.5 H (0.0-1.0) % PT 10.6 (9.0-12.0) SEC INR 1.1 (0.9-1.2) APTT 25.9 (22.0-34.0) SEC Sodium 123 L (136-145) mmol/L Potassium 3.8 (3.5-5.1) mmol/L Chloride 87 L (98-107) mmol/L Carbon Dioxide 29 (21-32) mmol/L Anion Gap 10.8 (7-13) mEq/L BUN 21 H (7-18) mg/dL Creatinine 0.92 (0.55-1.02) mg/dL Est Cr Clr Drug Dosing 42.80 mL/min Estimated GFR (MDRD) 58 BUN/Creatinine Ratio 22.8 (No establ ref range) Glucose 93 (70-99) mg/dL Lactic Acid (0.4-2.0) mmol/L Calcium 8.7 (8.5-10.1) mg/dL Total Bilirubin 0.7 (0.2-1.0) mg/dL AST 22 (15-37) U/L ALT 19 (14-59) U/L Alkaline Phosphatase 173 H (46-116) U/L Troponin I High Sens 18 (<=51) pg/mL C-Reactive Protein 20.8 H (0.0-0.9) mg/dL B-Natriuretic Peptide 120 H (0-100) pg/ml Total Protein 6.8 (6.4-8.2) g/dL Albumin 1.8 L (3.4-5.0) g/dL Globulin 5.0 Albumin/Globulin Ratio 0.36 12/26/21 Range/Units 14:26 WBC (5.0-10.0) 10^3/uL RBC (4.2-5.4) 10^6/uL Hgb (12.0-16.0) g/dL Hct (37.0-47.0) % MCV (80-100) fL MCH (27.0-34.0) pg MCHC (33.0-35.0) g/dL Plt Count (150-450) 10^3/uL Neut % (Auto) (42.2-75.2) % Lymph % (Auto) (20.5-50.1) % [place] % (Auto) (2-8) % Eos % (Auto) (1.0-3.0) % Baso % (Auto) (0.0-1.0) % PT (9.0-12.0) SEC INR (0.9-1.2) APTT (22.0-34.0) SEC Sodium (136-145) mmol/L Potassium (3.5-5.1) mmol/L Chloride (98-107) mmol/L Carbon Dioxide (21-32) mmol/L Anion Gap (7-13) mEq/L BUN (7-18) mg/dL Creatinine (0.55-1.02) mg/dL Est Cr Clr Drug Dosing mL/min Estimated GFR (MDRD) BUN/Creatinine Ratio (No establ ref range) Glucose (70-99) mg/dL Lactic Acid 1.6 (0.4-2.0) mmol/L Calcium (8.5-10.1) mg/dL Total Bilirubin (0.2-1.0) mg/dL AST (15-37) U/L ALT (14-59) U/L Alkaline Phosphatase (46-116) U/L Troponin I High Sens (<=51) pg/mL C-Reactive Protein (0.0-0.9) mg/dL B-Natriuretic Peptide (0-100) pg/ml Total Protein (6.4-8.2) g/dL Albumin (3.4-5.0) g/dL Globulin Albumin/Globulin Ratio Meds: Medications Generic Name Dose Route Start Last Admin Trade Name Freq PRN Reason Stop Dose Admin Sodium Chloride 1,000 mls @ 100 mls/hr 05/14/21 16:00 Normal Saline IV ASDIRECTED STEVIE Sodium Chloride 10 ml 05/14/21 14:17 05/14/21 15:07 Sodium Chloride 0.9% 10 Ml Syringe FLUSH 10 ml ASDIRECTED PRN Administration Keep Vein Open Discontinued Medications Generic Name Dose Route Start Last Admin Trade Name Freq PRN Reason Stop Dose Admin Albuterol/Ipratropium 3 ml 05/14/21 14:18 05/14/21 14:45 Albuterol/Ipratropium 3.0-0.5 Mg/3 Ml Neb Soln NEB 05/14/21 14:19 3 ml ONETIME ONE Administration - Radiology Interpretation Free Text/Narrative:: [facility] Final Radiology Report Call: [phone] assistance Online chat: [email or web address] Name: ANDRES RAGLAND Age: 85Years F Date: 05/14/2021 SSN: -- : [id number] Study: CT CHEST WO CONT Requesting Physician: BEBA LACY Images: 270 Addl Studies: Provided Clinical History: 30 days post COVID w/hypoxia/cough/rhonchi/dyspnea Contrast: Without Contrast Medium: Contrast Amount: Contrast Method: Page 1 of 2 PROCEDURE INFORMATION: Exam: CT Chest Without Contrast; Diagnostic Exam date and time: 05/14/2021 2:30 PM Age: 85 years old Clinical indication: Dyspnea and other: 30 days post covid w/hypoxia/cough/rhonchi/dyspnea TECHNIQUE: Imaging protocol: Diagnostic computed tomography of the chest without contrast. Radiation optimization: All CT scans at this facility use at least one of these dose optimization techniques: automated exposure control; mA and/or kV adjustment per patient size (includes targeted exams where dose is matched to clinical indication); or iterative reconstruction. COMPARISON: CT Chest w Cont 05/01/2021 2:06 PM FINDINGS: Tubes, catheters and devices: A left-sided dual lead pacemaker is present. Lungs: Chronic appearing interstitial changes are present within the lung parenchyma with areas of consolidation and scarring in the lower lobes right greater than left. There is moderate grade bronchiectasis in the lower lobes. This could be post inflammatory change. There is no pulmonary fibrosis. Pleural spaces: Unremarkable. No pneumothorax. No pleural effusion. Heart: Moderate grade coronary atherosclerosis is present. Aorta: [id number] grade atherosclerotic change of the thoracic aorta is present without aneurysm. Lymph nodes: Unremarkable. No enlarged lymph nodes. Diaphragm: Moderate size hiatal hernia is present. Liver: Small low-density lesion within the liver measures less than 1 cm in size and is too small to definitively characterize. Statistically, this likely represents a cyst. ANDRES RAGLAND | Final Radiology Report CONFIDENTIALITY STATEMENT This report is intended only for use by the referring physician, and only in accordance with law. If you received this in error, call [phone]. Page 2 of 2 Gallbladder and bile ducts: Stones are noted within the gallbladder. There is no gallbladder wall thickening or pericholecystic fluid. Bones/joints: Moderate grade degenerative changes are present within the thoracic spine. No compression fracture or focal lesion identified. Soft tissues: Unremarkable. IMPRESSION: 1. Chronic changes within the lung parenchyma with areas of parenchymal scarring and chronic consolidation. There also areas of moderate grade bronchiectasis predominantly within the lower lobes. These are likely postinflammatory/postinfectious changes. 2. Moderate grade coronary atherosclerosis. 3. Cholelithiasis without acute cholecystitis or biliary tract obstruction. 4. Indeterminate small lesion within the liver. Contrast enhanced CT scan or MRI would provide more definitive characterization. Statistically, this likely represents a cyst. Thank you for allowing us to participate in the care of your patient. Dictated and Authenticated by: Obie Rojo MD 05/14/2021 3:47 PM Central Time ([place] & [place]) Departure - Departure Time of Disposition: 15:58 (admitted to Dr. House) Disposition: Admitted As Inpatient 68 Condition: Fair Clinical Impression: Hyponatremia, Post-COVID chronic dyspnea Pulmonary embolism Qualifiers: Pulmonary embolism type: other Chronicity: chronic Acute cor pulmonale presence: without acute cor pulmonale Qualified Code(s): I27.82 - Chronic pulmonary embolism - Discharge Information *PRESCRIPTION DRUG MONITORING PROGRAM REVIEWED*: Not Applicable *COPY OF PRESCRIPTION DRUG MONITORING REPORT IN PATIENT NAEL: Not Applicable Forms: ED Department Discharge Sepsis Event Note (ED) - Focused Exam Vital Signs: Vital Signs Temp Pulse Resp BP Pulse Ox 05/14/21 14:41 97 05/14/21 14:16 96.6 F L 93 20 125/81 93 L - My Orders Last 24 Hours: My Active Orders 05/14/21 14:15 Blood Culture x2 Reflex Set [OM.PC] Stat 05/14/21 14:16 Peripheral IV Insertion Adult [OM.PC] Stat 05/14/21 14:17 Peripheral IV Care [RC] . DIRECTED Sodium Chloride 0.9% [Saline Flush] 10 ml FLUSH ASDIRECTED PRN 05/14/21 14:18 RT Aerosol Therapy [RC] ASDIRECTED 05/14/21 14:26 CULTURE BLOOD [BC] Stat 05/14/21 14:30 CULTURE BLOOD [BC] Stat 05/14/21 16:00 Sodium Chloride 0.9% [Normal Saline] 1,000 ml IV ASDIRECTED - Assessment/Plan Last 24 Hours: My Active Orders 05/14/21 14:15 Blood Culture x2 Reflex Set [OM.PC] Stat 05/14/21 14:16 Peripheral IV Insertion Adult [OM.PC] Stat 05/14/21 14:17 Peripheral IV Care [RC] . DIRECTED Sodium Chloride 0.9% [Saline Flush] 10 ml FLUSH ASDIRECTED PRN 05/14/21 14:18 RT Aerosol Therapy [RC] ASDIRECTED 05/14/21 14:26 CULTURE BLOOD [BC] Stat 05/14/21 14:30 CULTURE BLOOD [BC] Stat 05/14/21 16:00 Sodium Chloride 0.9% [Normal Saline] 1,000 ml IV ASDIRECTED I have read and agree with the documentation that has been completed regarding this visit. By signing this record, I attest that the documentation was completed in my physical presence and is an accurate record of the encounter."
[2021-05-14] MEDS ORDERED: Morphine 2 MG/ML SYRINGE IVPUSH PRN (17:35)
[2021-05-14] MEDS ORDERED: Acetaminophen 325 MG Tab PO PRN (17:35)
[2021-05-14] MEDS ORDERED: Acetaminophen/HYDROcodone 325-10 MG Tab PO PRN (17:35)
[2021-05-14] MEDS ORDERED: Ondansetron 4 MG/2 ML SDV IVPUSH PRN (17:35)
[2021-05-14] MEDS ORDERED: Albuterol 0.083% 2.5 MG/3 ML Neb Soln NEB PRN (17:35)
[2021-05-14] MEDS ORDERED: Potassium Chloride 10 MEQ Tab.ER PO ONE (17:48)
[2021-05-14] MEDS ORDERED: Sodium Chloride 1 GM Tab PO ONE (17:49)
[2021-05-14] MEDS: methylPREDNISolone Sodium Succinate 40 MG/1 ML SDV IVPUSH SCH (18:31)
[2021-05-14] MEDS: Furosemide 40 MG/4 ML VIAL IVPUSH SCH (18:31)
[2021-05-14] MEDS ORDERED: Cefepime 2 GM in Sodium Chloride 0.9% 50 ML IV SCH (21:00)
[2021-05-14] MEDS: Cefepime 1 GM in Sodium Chloride 0.9% 50 ML IV SCH (21:03)
[2021-05-14] MEDS: Verapamil 180 MG Tab.ER PO SCH (21:04)
[2021-05-14] MEDS: Rivaroxaban 10 MG Tab PO SCH (21:05)
[2021-05-14] MEDS: Simvastatin 10 MG Tab PO SCH (21:05)
[2021-05-14] MEDS ORDERED: Lidocaine 5% 700 MG Patch TOP PRN (21:43)
[2021-05-14] MEDS: Doxycycline 100 MG in Sodium Chloride 0.9% 100 ML IV SCH (22:01)
--- NOTE | 2021-05-14 23:42 | HP ---
HISTORY OF PRESENT ILLNESS: The patient is an 85 years old female who presented to the emergency room because of cough, shortness of breath, and generalized weakness. The patient became ill last week of March 2021 when she tested positive for COVID on 04/19. She was sent to the ER from [facility] on 05/01/2021 and was later on transferred to [place] for admission due to no beds available here or elsewhere. The patient was discharged home on 05/05 with a diagnosis of pulmonary embolus and cough with pneumonia. The patient was started on Xarelto and has not missed any doses. She also has history of pulmonary fibrosis. She uses nebulizers once a day. She is on immunosuppression for rheumatoid arthritis. She admits to black stool and diarrhea. She denies any chest pain or abdominal pain. No urinary problems. Her oxygen at home was noted to be 83% at room air. ALLERGIES: The patient is allergic to amoxicillin, to clindamycin, and to oxycodone. She develops rash. PAST MEDICAL HISTORY: She has history of cataract, epistaxis, and glaucoma. She has left eye blindness, and wears corrective lenses. She has upper and lower denture plate. The patient has history of atrial fibrillation. Hypercholesterolemia. She is status post pacemaker. She has a history of asthma, interstitial lung disease, pulmonary emboli, pneumonia with COVID. History of GERD, GI bleed, hiatal hernia, bilateral renal cysts, arthritis, and osteoporosis. PAST SURGICAL HISTORY: The patient had cataract surgery, corneal transplant x2. She had colonoscopy, colostomy, EGD, esophageal dilation, hernia repair, and umbilical hernia repair. FAMILY HISTORY: The patient has a family history of type 2 diabetes. SOCIAL HISTORY: She used to smoke when she was young. Occasional alcohol use. Currently, she is not smoking. No alcohol use. No drug use. The patient lives at home with family. REVIEW OF SYSTEMS: 12-point review of system is negative except as in history of present illness. PHYSICAL EXAMINATION: Vital Signs: At admission, temperature 96.6, pulse 97, respiratory rate 20, blood pressure 125/81, and pulse 93. HEENT: The patient's head is atraumatic and normocephalic. Her left eyelid is drooping. The patient has total edentulation. General Appearance: No apparent distress. She is thin, ill appearing. Respiratory: Bilateral crackles in both lungs. Heart: S1 and S2. Regular rhythm and rate. No edema. Abdomen: Soft and nontender. Positive bowel sounds. Extremities: No edema. Psychiatric: Normal mood. Skin: Warm, dry, and intact. No rash. No pallor. No ecchymosis. No petechiae. No jaundice. DIAGNOSTIC DATA: EKG show sinus rhythm with PVC, rate 89, QRS widening, specific IVCD, ST-T normal, QT normal. WBC 6.4, hemoglobin 8.8, hematocrit 27.6, platelets 412, and neutrophils 79.1. PT 10.6, INR 1.1, and APTT 25.9. Sodium 123, potassium 3.8, chloride 87, carbon dioxide 29, anion gap 10.8, BUN 21, creatinine 0.92, estimated creatinine clearance 42.8, estimated GFR 58, glucose 93, calcium 8.7, bilirubin 0.7, AST 22, ALT 19, and alkaline phosphatase 173. Troponin 18. C-reactive protein 20.8. BNP 120. Total protein 6.8, albumin 1.8, and globulin 5. Urinalyses: Urine color is yellow; appearance clear; pH 6; specific gravity 1.015; glucose negative; ketone 15, high; occult blood negative; nitrates negative; and leukocyte esterase negative. CT of the chest show lungs, chronic-appearing interstitial changes are present within the lung parenchyma with area of consolidation and scarring in the lower lobes, right greater than left, this is moderate grade, bronchiectasis in the lower lobes. This could be inflammatory change. There is no pulmonary fibrosis. Pleural space is unremarkable. No pneumothorax. No pleural effusions. Heart moderate grade, coronary atherosclerosis is present with [id number] grade, atherosclerotic changes of the thoracic aorta is present without enuresis. Lymph nodes are unremarkable. Diaphragm, moderate-size hiatal hernia is present. Liver, small low-density lesion within the liver, measures less than 1 cm in size and is too small to definitely characterize. Statistically, this likely represents a cyst. Impression: Chronic changes within the lung parenchyma with an area of parenchymal scarring and chronic consolidation. There are also areas of moderate grade 2 bronchiectasis, predominantly within the lower lobe there are likely postinflammatory and postinfectious changes, moderate grade coronary atherosclerosis, cholelithiasis without acute cholecystitis or biliary duct obstruction. Indeterminate small liver lesion. A contrast enhanced CT scan or MRI would provide more definitive characterization, statistically this likely represents a cyst. Her lactic acid was 1.6. Her laboratory data showed that she has hyponatremia at 123, and anemia 8.8. Stool occult was negative. She has neutrophil percentage high, and her CRP is 20.8. The patient is currently coughing, and the CT of the chest show chronic changes and bronchiectasis and area of consolidation and scarring in the lower lobes, right greater than the left. ASSESSMENT AND PLAN: This 85 years old female presented to emergency room due to hypoxia at home at 83%. The patient has history of pulmonary fibrosis, recent COVID pneumonia and pulmonary embolus. Currently, the patient is on Xarelto 15 mg p.o. b.i.d. the patient is also on immunosuppression with etanercept. Respiratory failure, hypoxic, secondary to interstitial fibrosis, pulmonary embolus, and possible infection as patient is coughing. Has high CRP and she is immunosuppressed. We will start the patient on doxycycline 100 mg IV q.12 hours and cefepime 1 g IV q.12 hours. We will do blood cultures, sputum cultures, sputum for Gram stain, and we can give patient oxygen on nasal cannula to maintain oxygen saturation above 90. For pulmonary hypertension, which could be a cause of her hypoxia, we will start the patient on Lasix 40 mg IV q.12 hours, and we will give patient a dose of potassium 40 mEq p.o., 1 dose now, and we will continue patient with 40 mEq p.o. daily. We will hold etanercept, and also will start the patient on calcium blockers for pulmonary hypertension such as verapamil 180 mg p.o. at bedtime. For pulmonary embolus, the patient will be continue with rivaroxaban 15 mg p.o. b.i.d. For hyponatremia, the patient was given potassium chloride 40 mEq, which helps improve sodium level also, and we will also give the patient 2 g sodium chloride p.o. tablet. For pulmonary fibrosis, the patient will be given Solu-Medrol 40 mg q.12 hours, and recommend one [facility] consult tomorrow with Pulmonology. Her doctor is Dr. Wing. For GI prophylaxis, the patient will be given pantoprazole 40 mg p.o. daily. Also for shortness of breath, the patient will be given albuterol nebulizers q.2 hours p.r.n. For glaucoma, she will be continued with brimonidine, 1 drop both eyes b.i.d. For anemia, the patient will be given ferrous sulfate 325 mg p.o. t.i.d. Also for shortness of breath, she will be continue with formoterol 20 mcg inhalatory b.i.d. For back pain, she will be continued with lidocaine 1 patch topical q.12 hours. Also we will order procalcitonin level. If procalcitonin is negative, antibiotics can be discontinued. For hyponatremia, follow up sodium level. Also monitor I's and O's, and follow up electrolytes as the patient will be diuresed for likely pulmonary hypertension secondary to pulmonary fibrosis and pulmonary embolus. For deep venous thrombosis prophylaxis, the patient is on Xarelto 50 mg p.o. b.i.d. For hypertension, the patient is on metoprolol 25 mg p.o. daily. For rheumatoid arthritis, etanercept would be on hold until pneumonia rule out. Also, the patient is on leflunomide 10 mg p.o. daily. We will continue leflunomide 10 mg p.o. daily. [facility] /[id number]
[2021-05-15] MEDS: Pantoprazole 40 MG Tab.CR PO SCH (05:38)
[2021-05-15 07:02] LABS: ANION GAP 13.3 mEq/L (7-13); CHLORIDE,CL 93 mmol/L (98-107); SODIUM,NA 131 mmol/L (136-145)
[2021-05-15] MEDS: Rivaroxaban 10 MG Tab PO SCH ×2 (08:27→20:05)
[2021-05-15] MEDS: Ferrous Sulfate 325 MG Tab PO SCH ×3 (08:27→17:44)
[2021-05-15] MEDS: Calcium Carbonate/Vitamin D3 1250 MG-5 MCG Tab PO SCH ×2 (08:28→20:05)
[2021-05-15] MEDS: Brimonidine 0.15% Ophth Soln 5 ML Bottle EYEBOTH SCH ×2 (08:28→20:03)
[2021-05-15] MEDS: Furosemide 40 MG/4 ML VIAL IVPUSH SCH ×2 (08:30→14:07)
[2021-05-15] MEDS: Carboxymethylcellulose Sodium 1% Ophth Gel 0.4 ML UD EYEBOTH SCH ×4 (08:30→20:02)
[2021-05-15] MEDS: methylPREDNISolone Sodium Succinate 40 MG/1 ML SDV IVPUSH SCH (08:30)
[2021-05-15] MEDS: Cefepime 1 GM in Sodium Chloride 0.9% 50 ML IV SCH (08:31)
[2021-05-15] MEDS: Metoprolol Succinate 25 MG Tab.ER PO SCH (08:31)
[2021-05-15] MEDS ORDERED: LEFLUNOMIDE 10 MG PO SCH (09:00)
[2021-05-15] MEDS ORDERED: Pantoprazole 40 MG Tab.CR PO SCH (09:00)
[2021-05-15] MEDS ORDERED: [UNRECOGNIZED DRUG - OTHER] EYERT SCH (09:00)
[2021-05-15] MEDS ORDERED: CARBOXYMETHYLCELLULOS EYERT SCH (09:00)
[2021-05-15] MEDS ORDERED: GLYCERIN EYERT SCH (09:00)
[2021-05-15] MEDS: Doxycycline 100 MG in Sodium Chloride 0.9% 100 ML IV SCH ×2 (10:22→21:58)
[2021-05-15] MEDS ORDERED: Sodium Chloride 0.9% 10 ML Syringe FLUSH PRN (15:32)
--- NOTE | 2021-05-15 17:36 | PCM.PN ---
- General Info Date of Service: 05/15/21 Admission Dx/Problem (Free Text): Admitted with: Cough, shortness of breath and generalized weakness Subjective Update: The patient was seen today in rounds and getting better, her shortness of breath has improved significantly, no nausea or vomiting, no fever or chills, appetite is better. Ms. Suárez, is a 85-year-old pleasant female with past medical history significant for chronic atrial fibrillation status post pacemaker placement history of asthma history of interstitial lung disease history of PE and pneumonia with Covid recently history of GI bleed osteoporosis and glaucoma with left eye blindness. The patient was admitted from the emergency room because of cough shortness of breath and generalized weakness she was recently discharged from hospital on 1216 with diagnosis of pulmonary emboli cough and pneumonia the patient started on Xarelto and as per patient she has not missed her doses. Functional Status: Reports: Pain Controlled, Tolerating Diet, Ambulating, Urinating - Review of Systems General: Reports: Weakness, Chills, Appetite (good). Denies: Fever HEENT: Reports: Sinus Congestion, Visual Changes. Denies: Headaches, Sore Throat Pulmonary: Denies: Shortness of Breath, Wheezing Cardiovascular: Reports: Edema. Denies: Chest Pain Gastrointestinal: Reports: Decreased Appetite. Denies: Abdominal Pain, Diarrhea, Nausea, Vomiting Genitourinary: Denies: Dysuria, Frequency, Retention, Flank Pain Musculoskeletal: Reports: Neck Pain. Denies: Leg Pain, Joint Pain Skin: Denies: Bruising, Pruritis, Rash Neurological: Reports: Weakness. Denies: Confusion, Dizziness, Numbness, Change in Speech Psychiatric: Reports: Confusion - Patient Data Vitals - Most Recent: Last Vital Signs Temp 36.2 C 05/15/21 16:00 Pulse 58 L 05/15/21 16:00 Resp 20 05/15/21 16:00 BP 113/54 L 05/15/21 16:00 Pulse Ox 98 05/15/21 16:00 Weight - Most Recent: 50.077 kg I&O - Last 24 Hours: Intake & Output 05/15/21 05/15/21 05/15/21 06:59 14:59 22:59 Intake Total 150 380 Output Total 400 600 200 Balance -250 -220 -200 Lab Results Last 24 Hours: Laboratory Results - last 24 hr 05/14/21 05/15/21 Range/Units 19:55 06:34 Sodium 131 L (136-145) mmol/L Potassium 4.3 (3.5-5.1) mmol/L Chloride 93 L (98-107) mmol/L Carbon Dioxide 29 (21-32) mmol/L Anion Gap 13.3 H (7-13) mEq/L BUN 24 H (7-18) mg/dL Creatinine 0.88 (0.55-1.02) mg/dL Est Cr Clr Drug Dosing 39.54 mL/min Estimated GFR (MDRD) > 60 BUN/Creatinine Ratio 27.3 (No establ ref range) Glucose 142 H (70-99) mg/dL Calcium 8.4 L (8.5-10.1) mg/dL Phosphorus 4.7 (2.6-4.7) mg/dL Magnesium 1.7 L (1.8-2.4) mg/dL Total Bilirubin 0.4 (0.2-1.0) mg/dL AST 17 (15-37) U/L ALT 21 (14-59) U/L Alkaline Phosphatase 155 H (46-116) U/L Total Protein 6.9 (6.4-8.2) g/dL Albumin 1.8 L (3.4-5.0) g/dL Globulin 5.1 Albumin/Globulin Ratio 0.35 Urine Color Yellow (YELLOW) Urine Appearance Clear (CLEAR) Urine pH 6.0 (5.0-9.0) Ur Specific [place] 1.015 (1.005-1.030) Urine Protein Negative (NEGATIVE) Urine Glucose (UA) Negative (NEGATIVE) Urine Ketones 15 H (NEGATIVE) Urine Occult Blood Negative (NEGATIVE) Urine Nitrite Negative (NEGATIVE) Urine Bilirubin Negative (NEGATIVE) Urine Urobilinogen 0.2 (0.2-1.0) mg/dL Ur Leukocyte Esterase Negative (NEGATIVE) Urine RBC Not seen (0-5) /HPF Urine WBC 0-5 (0-5/HPF) /HPF Ur Epithelial Cells Moderate H (NOT SEEN) /HPF Urine Bacteria Moderate H (0-FEW/HPF) /HPF Carlos Alberto Results Last 24 Hours: Microbiology 05/14/21 14:30 Aerobic Blood Culture - Preliminary Blood - Arm, Left NO GROWTH AFTER 1 DAY Anaerobic Blood Culture - Preliminary NO GROWTH AFTER 1 DAY 05/14/21 14:26 Aerobic Blood Culture - Preliminary Blood - Arm, Right NO GROWTH AFTER 1 DAY Anaerobic Blood Culture - Preliminary NO GROWTH AFTER 1 DAY 05/14/21 14:30 Stool Occult Blood (CARLOS ALBERTO) - Final Stool / Feces NEGATIVE OCCULT BLOOD REFERENCE RANGE: NEGATIVE Med Orders - Current: Current Medications Acetaminophen (Acetaminophen 325 Mg Tab) 650 mg PO Q4H PRN PRN Reason: Pain (Mild 1-3)/fever Hydrocodone Bitart/Acetaminophen (Acetaminophen/Hydrocodone 325-10 Mg Tab) 0.5 tab PO Q4H PRN PRN Reason: Pain (moderate 4-6) Albuterol (Albuterol 0.083% 2.5 Mg/3 Ml Neb Soln) 2.5 mg NEB Q2H PRN PRN Reason: shortness of breath/wheezing Artificial Tears (Carboxymethylcellulose Sodium 1% Ophth Gel 0.4 Ml Ud) 1 each EYEBOTH ,,, [facility] Last Admin: 05/15/21 12:24 Dose: 1 each Documented by: Brimonidine Tartrate (Brimonidine 0.15% Ophth Soln 5 Ml Bottle) 0 ml EYEBOTH BID [facility] Last Admin: 05/15/21 08:28 Dose: 1 drop Documented by: Calcium Carbonate (Calcium Carbonate/Vitamin D3 1250 Mg-5 Mcg Tab) 1 tab PO BID [facility] Last Admin: 05/15/21 08:28 Dose: 1 tab Documented by: Ferrous Sulfate (Ferrous Sulfate 325 Mg Tab) 325 mg PO TIDMEALS [facility] Last Admin: 05/15/21 12:23 Dose: 325 mg Documented by: Formoterol Fumarate (Formoterol 20 Mcg/2 Ml Neb) 20 mcg INH BID [facility] Last Admin: 05/15/21 10:21 Dose: Not Given Documented by: Furosemide (Furosemide 40 Mg/4 Ml Vial) 40 mg IVPUSH BIDDIURETIC [facility] Last Admin: 05/15/21 14:07 Dose: 40 mg Documented by: Doxycycline Hyclate 100 mg/ (Sodium Chloride) 100 mls @ 100 mls/hr IV Q12H [facility] Last Admin: 05/15/21 10:22 Dose: 100 mls/hr Documented by: Lidocaine (Lidocaine 5% 700 Mg Patch) 700 mg TOP Q12HR PRN PRN Reason: Pain Last Admin: 05/14/21 22:48 Dose: 700 mg Documented by: Magnesium Oxide (Magnesium Oxide 250 Mg Tab) 250 mg PO BIDMEALS [facility] Last Admin: 05/15/21 10:22 Dose: 250 mg Documented by: Methylprednisolone Sodium Succinate (Methylprednisolone Sodium Succinate 40 Mg/1 Ml Sdv) 40 mg IVPUSH DAILY [facility] Last Admin: 05/15/21 08:30 Dose: 40 mg Documented by: Metoprolol Succinate (Metoprolol Succinate 25 Mg Tab.Er) 25 mg PO DAILY [facility] Last Admin: 05/15/21 08:31 Dose: Not Given Documented by: Mineral Oil/White Petrolatum (Mineral Oil/Petrolatum Ophth Oint 3.5 Gm Tube) 1 gm EYEBOTH BEDTIME [facility] Morphine Sulfate (Morphine 2 Mg/Ml Syringe) 2 mg IVPUSH Q2H PRN PRN Reason: Pain (severe 7-10) Ondansetron HCl (Ondansetron 4 Mg/2 Ml Sdv) 4 mg IVPUSH Q4H PRN PRN Reason: Nausea/Vomiting Pantoprazole Sodium (Pantoprazole 40 Mg Tab.Cr) 40 mg PO ACBRK [facility] Last Admin: 05/15/21 05:38 Dose: 40 mg Documented by: Rivaroxaban (Rivaroxaban 10 Mg Tab) 15 mg PO BID [facility] Last Admin: 05/15/21 08:27 Dose: 15 mg Documented by: Simvastatin (Simvastatin 10 Mg Tab) 10 mg PO BEDTIME [facility] Last Admin: 05/14/21 21:05 Dose: 10 mg Documented by: Sodium Chloride (Sodium Chloride 0.9% 10 Ml Syringe) 10 ml FLUSH ASDIRECTED PRN PRN Reason: Keep Vein Open Verapamil HCl (Verapamil 180 Mg Tab.Er) 180 mg PO BEDTIME [facility] Last Admin: 05/14/21 21:04 Dose: 180 mg Documented by: Discontinued Medications Albuterol/Ipratropium (Albuterol/Ipratropium 3.0-0.5 Mg/3 Ml Neb Soln) 3 ml NEB ONETIME ONE Stop: 05/14/21 14:19 Last Admin: 05/14/21 14:45 Dose: 3 ml Documented by: Sodium Chloride (Normal Saline) 1,000 mls @ 100 mls/hr IV ASDIRECTED [facility] Last Admin: 05/14/21 16:03 Dose: 100 mls/hr Documented by: Cefepime HCl 2 gm/ Sodium (Chloride) 50 mls @ 100 mls/hr IV Q12HR [facility] Cefepime HCl 1 gm/ Sodium (Chloride) 50 mls @ 100 mls/hr IV Q12HR [facility] Last Admin: 05/15/21 08:31 Dose: 100 mls/hr Documented by: Non-Formulary Medication (Leflunomide [Leflunomide]) 10 mg PO DAILY [facility] Last Admin: 05/15/21 11:57 Dose: Not Given Documented by: Pantoprazole Sodium (Pantoprazole 40 Mg Tab.Cr) 40 mg PO DAILY [facility] Potassium Chloride (Potassium Chloride 10 Meq Tab.Er) 40 meq PO ONETIME ONE Stop: 05/14/21 17:49 Last Admin: 05/14/21 18:31 Dose: 40 meq Documented by: Sodium Chloride (Sodium Chloride 0.9% 10 Ml Syringe) 10 ml FLUSH ASDIRECTED PRN PRN Reason: Keep Vein Open Last Admin: 05/14/21 15:07 Dose: 10 ml Documented by: Sodium Chloride (Sodium Chloride 1 Gm Tab) 2 gm PO ONETIME ONE Stop: 05/14/21 17:50 Last Admin: 05/14/21 18:31 Dose: 2 gm Documented by: - Exam Quality Assessment: Supplemental Oxygen, DVT Prophylaxis. No: Central Li ne/PICC, Urine Catheter General: Alert, Oriented HEENT: Pupils Equal, Pupils Reactive, EOMI, Mucous Membr. Moist/[place] Neck: Supple, No JVD, No Thyromegaly Lungs: Clear to Auscultation, Normal Respiratory Effort. No: Crackles, Wheezing GI/Abdominal Exam: Normal Bowel Sounds, Soft, Non-Tender, No Organomegaly, No Distention (Female) Exam: Deferred Back Exam: Normal Inspection Extremities: Normal Inspection, No Pedal Edema Skin: Warm, Dry, Intact Neurological: No New Focal Deficit Psy/Mental Status: Alert, Normal Affect, Normal Mood - Patient Data Lab Results Last 24 hrs: Laboratory Results - last 24 hr 05/14/21 05/15/21 Range/Units 19:55 06:34 Sodium 131 L (136-145) mmol/L Potassium 4.3 (3.5-5.1) mmol/L Chloride 93 L (98-107) mmol/L Carbon Dioxide 29 (21-32) mmol/L Anion Gap 13.3 H (7-13) mEq/L BUN 24 H (7-18) mg/dL Creatinine 0.88 (0.55-1.02) mg/dL Est Cr Clr Drug Dosing 39.54 mL/min Estimated GFR (MDRD) > 60 BUN/Creatinine Ratio 27.3 (No establ ref range) Glucose 142 H (70-99) mg/dL Calcium 8.4 L (8.5-10.1) mg/dL Phosphorus 4.7 (2.6-4.7) mg/dL Magnesium 1.7 L (1.8-2.4) mg/dL Total Bilirubin 0.4 (0.2-1.0) mg/dL AST 17 (15-37) U/L ALT 21 (14-59) U/L Alkaline Phosphatase 155 H (46-116) U/L Total Protein 6.9 (6.4-8.2) g/dL Albumin 1.8 L (3.4-5.0) g/dL Globulin 5.1 Albumin/Globulin Ratio 0.35 Urine Color Yellow (YELLOW) Urine Appearance Clear (CLEAR) Urine pH 6.0 (5.0-9.0) Ur Specific [place] 1.015 (1.005-1.030) Urine Protein Negative (NEGATIVE) Urine Glucose (UA) Negative (NEGATIVE) Urine Ketones 15 H (NEGATIVE) Urine Occult Blood Negative (NEGATIVE) Urine Nitrite Negative (NEGATIVE) Urine Bilirubin Negative (NEGATIVE) Urine Urobilinogen 0.2 (0.2-1.0) mg/dL Ur Leukocyte Esterase Negative (NEGATIVE) Urine RBC Not seen (0-5) /HPF Urine WBC 0-5 (0-5/HPF) /HPF Ur Epithelial Cells Moderate H (NOT SEEN) /HPF Urine Bacteria Moderate H (0-FEW/HPF) /HPF Result Diagrams: 05/14/21 14:26 05/15/21 06:34 Carlos Alberto Results Last 24 hrs: Microbiology 05/14/21 14:30 Aerobic Blood Culture - Preliminary Blood - Arm, Left NO GROWTH AFTER 1 DAY Anaerobic Blood Culture - Preliminary NO GROWTH AFTER 1 DAY 05/14/21 14:26 Aerobic Blood Culture - Preliminary Blood - Arm, Right NO GROWTH AFTER 1 DAY Anaerobic Blood Culture - Preliminary NO GROWTH AFTER 1 DAY 05/14/21 14:30 Stool Occult Blood (CARLOS ALBERTO) - Final Stool / Feces NEGATIVE OCCULT BLOOD REFERENCE RANGE: NEGATIVE Sepsis Event Note - Evaluation Sepsis Screening Result: No Definite Risk - Focused Exam Vital Signs: Vital Signs Temp Pulse Pulse Resp BP BP Pulse Ox 05/15/21 16:00 36.2 C 58 L 20 113/54 L 98 05/15/21 12:00 36.3 C 63 20 96/57 L 98 05/15/21 08:31 59 L 99/53 L 05/15/21 08:00 36.4 C 59 L 20 99/53 L 100 - Problem List Review Problem List Initiated/Reviewed/Updated: Yes - My Orders Last 24 Hours: My Active Orders 05/15/21 10:15 Magnesium Oxide 250 mg PO BIDMEALS 05/15/21 15:32 Sodium Chloride 0.9% [Saline Flush] 10 ml FLUSH ASDIRECTED PRN 05/15/21 16:43 OT Evaluation and Treatment [CONS] Routine PT Evaluation and Treatment [CONS] Routine - Plan Plan:: This is an 85-year-old elderly lady admitted with acute hypoxia and weakness, the patient recently had COVID- 19 pneumonia, and pulmonary embolism, currently 1 Xarelto. Impression and plan: 1. Acute shortness of breath possible infectious origin and the patient is coughing she has high CRP and will continue her on doxycycline 100 IV every 12 hours we will also continue her methylprednisolone 40 mg IV daily. The patient is improving now and will try to wean her off nasal cannula oxygen as tolerated. 2. Hypertension: Her blood pressure is acceptable and we will continue her with verapamil at 180 mg daily and metoprolol at 25 mg daily. 3. Atrial fibrillation: This is chronic for her and her rate is well controlled with verapamil at 180 mg daily, and she is also on chronic anticoagulation with Xarelto. 4. Dyslipidemia: Continue her on simvastatin at 10 mg daily. 5. Chronic back pain: Continue her on lidocaine 5% patch every 24 hours. GI prophylaxis: Continue on Protonix 40 mg daily. DVT prophylaxis: The patient is on Xarelto and will not start on any other medication.
[2021-05-15] MEDS: Simvastatin 10 MG Tab PO SCH (20:05)
[2021-05-15] MEDS: Verapamil 180 MG Tab.ER PO SCH (20:05)
[2021-05-15] MEDS ORDERED: Mineral Oil/Petrolatum Ophth Oint 3.5 GM Tube EYEBOTH SCH (21:00)
[2021-05-16] MEDS: Pantoprazole 40 MG Tab.CR PO SCH (05:45)
[2021-05-16 07:11] LABS: ANION GAP 14.7 mEq/L (7-13)
[2021-05-16] MEDS: Ferrous Sulfate 325 MG Tab PO SCH ×2 (08:55→12:22)
[2021-05-16] MEDS: Calcium Carbonate/Vitamin D3 1250 MG-5 MCG Tab PO SCH (08:55)
[2021-05-16] MEDS: Rivaroxaban 10 MG Tab PO SCH (08:56)
[2021-05-16] MEDS: Furosemide 40 MG/4 ML VIAL IVPUSH SCH ×2 (08:57→13:42)
[2021-05-16] MEDS: methylPREDNISolone Sodium Succinate 40 MG/1 ML SDV IVPUSH SCH (08:58)
[2021-05-16] MEDS: Carboxymethylcellulose Sodium 1% Ophth Gel 0.4 ML UD EYEBOTH SCH ×2 (08:58→13:42)
[2021-05-16] MEDS: Brimonidine 0.15% Ophth Soln 5 ML Bottle EYEBOTH SCH (08:59)
[2021-05-16] MEDS: Doxycycline 100 MG in Sodium Chloride 0.9% 100 ML IV SCH (10:04)
[2021-05-16] MEDS: Metoprolol Succinate 25 MG Tab.ER PO SCH (10:04)
--- NOTE | 2021-05-16 11:24 | PCM.DCSUM1 ---
Discharge Summary - Hospital Course Free Text/Narrative:: The patient was seen today in rounds and getting better, her shortness of breath has improved significantly, no nausea or vomiting, no fever or chills, appetite is better and she is ready to go home. Ms. Suárez, is a 85-year-old pleasant female with past medical history significant for chronic atrial fibrillation status post pacemaker placement history of asthma history of interstitial lung disease history of PE and pneumonia with Covid recently history of GI bleed osteoporosis and glaucoma with left eye blindness. The patient was admitted from the emergency room because of cough shortness of breath and generalized weakness she was recently discharged from hospital on 05/05 with diagnosis of pulmonary emboli cough and pneumonia the patient started on Xarelto and as per patient she has not missed her doses. After admission she was stated on Doxycycline and Methylprednisone. she will go home on oral prednisone 20 mg for 3 days and 10 mg for 3 days and Doxycycine 100 mg BID for 5 days course. She is advised to follow with PMD in a week. [facility] to monitor respiratory status due to hypoxia, PT for endurance and strengthening, OT for Home safety Eval and ADL's. Diagnosis: Stroke: No - Discharge Data Discharge Date: 05/16/21 Discharge Disposition: Home, Self-Care 01 Condition: Good - Referral to Home Health Primary Care Physician: PCP None - Patient Summary/Data Consults: Consultations 05/15/21 16:43 OT Evaluation and Treatment [CONS] Routine PT Evaluation and Treatment [CONS] Routine - Patient Instructions Diet: Heart Healthy Diet Activity: As Tolerated Showering/Bathing: May Shower Notify Provider of: Fever, Swelling and Redness, Nausea and/or Vomiting Other/Special Instructions: Ms. Suárez, is a 85-year-old pleasant female with past medical history significant for chronic atrial fibrillation status post pacemaker placement history of asthma history of interstitial lung disease history of PE and pneumonia with Covid recently history of GI bleed osteoporosis and glaucoma with left eye blindness. The patient was admitted from the emergency room because of cough shortness of breath and generalized weakness she was recently discharged from hospital on 05/05 with diagnosis of pulmonary emboli cough and pneumonia the patient started on Xarelto and as per patient she has not missed her doses. After admission she was stated on Doxycycline and Methylprednisone. she will go home on oral prednisone 20 mg for 3 days and 10 mg for 3 days and Doxycycine 100 mg BID for 5 days course. She is advised to follow with PMD in a week - Discharge Plan *PRESCRIPTION DRUG MONITORING PROGRAM REVIEWED*: Not Applicable *COPY OF PRESCRIPTION DRUG MONITORING REPORT IN PATIENT NAEL: Not Applicable Prescriptions/Med Rec: predniSONE [Prednisone] 10 mg PO DAILY 6 Days #9 tab.ds.pk Doxycycline [Vibra-Tabs] 100 mg PO Q12HR 5 Days #10 tab Home Medications: Home Meds Simvastatin [Zocor] 10 mg PO BEDTIME 11/01/14 [History] Calcium Citrate/Vitamin D3 [Calcium Citrate + D] 1 tab PO BID 04/05/16 [History] Cetirizine [ZyrTEC] 10 mg PO DAILY 01/11/20 [History] Acetaminophen 500 mg PO Q6H PRN 05/14/21 [History] Albuterol [Take Home: Albuterol 18 GM, 1 INH Pack] 05/14/21 [History] Albuterol [Take Home: Albuterol 18 GM, 1 INH Pack] 1 puff INH Q6HR PRN 05/14/21 [History] Brimonidine [Alphagan P 0.15% Ophth Soln] 1 drop EARLF BID 05/14/21 [History] Carboxymethylcellulos/Glycerin [Refresh Optive Gel Eye Drops] 1 drop EYERT QID 05/14/21 [History] Carboxymethylcellulose Sodium [Refresh Tears 0.5%] 1 drop EYEBOTH 09,13,17,21 05/14/21 [History] Etanercept [Enbrel Sureclick] 50 mg SQ WEEKLY 05/14/21 [History] Formoterol Fumarate 20 mcg IH BID 05/14/21 [History] Leflunomide 10 mg PO DAILY 05/14/21 [History] Lidocaine [Lidocaine 5%] 1 patch TOP Q12HR PRN 05/14/21 [History] Metoprolol Succinate 25 mg PO DAILY 05/14/21 [History] Mineral Oil/Petrolatum,White [Lubrifresh Pm Eye Ointment] 1 applic EYEBOTH BEDTIME 05/14/21 [History] Multivitamin 1 each PO DAILY 05/14/21 [History] Pantoprazole Sodium [Protonix] 40 mg PO DAILY 05/14/21 [History] Pirfenidone [Esbriet] 801 mg PO 09,14,05/14/21 [History] Rivaroxaban [Xarelto] 15 mg PO BID 05/14/21 [History] dexAMETHasone [Dexamethasone] 6 mg PO DAILY 05/14/21 [History] Doxycycline [Vibra-Tabs] 100 mg PO Q12HR 5 Days #10 tab 05/16/21 [Rx] predniSONE [Prednisone] 10 mg PO DAILY 6 Days #9 tab.ds.pk 05/16/21 [Rx] Oxygen Therapy Mode: Room Air Patient Handouts: Hyponatremia, [id number]-go-[id number], Doxycycline tablets or capsules, Prednisolone tablets Referrals: [facility] [Ordering Only Provider] - - Discharge Summary/Plan Comment DC Time >30 min.: Yes Total # of Minutes for Discharge Time: Time spend >30 minutes - General Info Date of Service: 05/16/21 Admission Dx/Problem (Free Text: Admitted with: Cough, shortness of breath and generalized weakness Subjective Update: The patient was seen today in rounds and doing very well, , her shortness of breath has improved significantly and npt on any supplemental oxygen, , no nausea or vomiting, no fever or chills, appetite is better and will be going home today. Functional Status: Reports: Pain Controlled, Tolerating Diet, Ambulating, Urinating - Review of Systems General: Reports: Weakness, Appetite (acceptable). Denies: Fever, Chills HEENT: Denies: Headaches, Sinus Congestion, Sore Throat, Visual Changes Pulmonary: Denies: Shortness of Breath, Cough, Sputum, Wheezing Cardiovascular: Denies: Chest Pain, Dyspnea on Exertion, Edema, Lightheadedness Gastrointestinal: Denies: Abdominal Pain, Diarrhea, Nausea, Vomiting Genitourinary: Denies: Dysuria, Burning, Flank Pain Musculoskeletal: Denies: Neck Pain, Hand Pain, Leg Pain Skin: Denies: Jaundice, Bruising, Pruritis, Rash Neurological: Denies: Confusion, Seizure, Tremors Psychiatric: Reports: No Symptoms - Patient Data Vitals - Most Recent: Last Vital Signs Temp 36.6 C 05/16/21 08:00 Pulse 65 05/16/21 10:04 Resp 26 H 05/16/21 08:00 BP 114/54 L 05/16/21 10:04 Pulse Ox 97 05/16/21 08:00 Weight - Most Recent: 49.305 kg I&O - Last 24 hours: Intake & Output 05/15/21 05/16/21 05/16/21 22:59 06:59 14:59 Intake Total 490 50 340 Output Total 200 Balance 290 50 340 Lab Results - Last 24 hrs: Laboratory Results - last 24 hr 05/16/21 05/16/21 Range/Units 05:50 05:50 WBC 4.3 L (5.0-10.0) 10^3/uL RBC 4.35 (4.2-5.4) 10^6/uL Hgb 10.1 L (12.0-16.0) g/dL Hct 32.3 L (37.0-47.0) % MCV 74.3 L (80-100) fL MCH 23.2 L (27.0-34.0) pg MCHC 31.3 L (33.0-35.0) g/dL Plt Count 463 H (150-450) 10^3/uL Neut % (Auto) 74.0 (42.2-75.2) % Lymph % (Auto) 19.9 L (20.5-50.1) % [place] % (Auto) 4.2 (2-8) % Eos % (Auto) 0.0 L (1.0-3.0) % Baso % (Auto) 1.9 H (0.0-1.0) % Add Manual Diff Yes Neutrophils % (Manual) 74 (42-75) % Band Neutrophils % 4 % Lymphocytes % (Manual) 18 L (20-50) % Monocytes % (Manual) 4 (2-8) % Sodium 132 L (136-145) mmol/L Potassium 3.7 (3.5-5.1) mmol/L Chloride 94 L (98-107) mmol/L Carbon Dioxide 27 (21-32) mmol/L Anion Gap 14.7 H (7-13) mEq/L BUN 37 H (7-18) mg/dL Creatinine 1.05 H (0.55-1.02) mg/dL Est Cr Clr Drug Dosing 31.60 mL/min Estimated GFR (MDRD) 50 Glucose 147 H (70-99) mg/dL Calcium 8.9 (8.5-10.1) mg/dL NOVA Results - Last 24 hrs: Microbiology 05/14/21 14:30 Aerobic Blood Culture - Preliminary Blood - Arm, Left NO GROWTH AFTER 1 DAY Anaerobic Blood Culture - Preliminary NO GROWTH AFTER 1 DAY 05/14/21 14:26 Aerobic Blood Culture - Preliminary Blood - Arm, Right NO GROWTH AFTER 1 DAY Anaerobic Blood Culture - Preliminary NO GROWTH AFTER 1 DAY Med Orders - Current: Current Medications Acetaminophen (Acetaminophen 325 Mg Tab) 650 mg PO Q4H PRN PRN Reason: Pain (Mild 1-3)/fever Hydrocodone Bitart/Acetaminophen (Acetaminophen/Hydrocodone 325-10 Mg Tab) 0.5 tab PO Q4H PRN PRN Reason: Pain (moderate 4-6) Albuterol (Albuterol 0.083% 2.5 Mg/3 Ml Neb Soln) 2.5 mg NEB Q2H PRN PRN Reason: shortness of breath/wheezing Artificial Tears (Carboxymethylcellulose Sodium 1% Ophth Gel 0.4 Ml Ud) 1 each EYEBOTH ,,, [facility] Last Admin: 05/16/21 08:58 Dose: 1 each Documented by: Brimonidine Tartrate (Brimonidine 0.15% Ophth Soln 5 Ml Bottle) 0 ml EYEBOTH BID [facility] Last Admin: 05/16/21 08:59 Dose: 1 drop Documented by: Calcium Carbonate (Calcium Carbonate/Vitamin D3 1250 Mg-5 Mcg Tab) 1 tab PO BID [facility] Last Admin: 05/16/21 08:55 Dose: 1 tab Documented by: Ferrous Sulfate (Ferrous Sulfate 325 Mg Tab) 325 mg PO TIDMEALS [facility] Last Admin: 05/16/21 08:55 Dose: 325 mg Documented by: Formoterol Fumarate (Formoterol 20 Mcg/2 Ml Neb) 20 mcg INH BID [facility] Last Admin: 05/16/21 10:33 Dose: 20 mcg Documented by: Furosemide (Furosemide 40 Mg/4 Ml Vial) 40 mg IVPUSH BIDDIURETIC [facility] Last Admin: 05/16/21 08:57 Dose: 40 mg Documented by: Doxycycline Hyclate 100 mg/ (Sodium Chloride) 100 mls @ 100 mls/hr IV Q12H [facility] Last Admin: 05/16/21 10:04 Dose: 100 mls/hr Documented by: Lidocaine (Lidocaine 5% 700 Mg Patch) 700 mg TOP Q12HR PRN PRN Reason: Pain Last Admin: 05/14/21 22:48 Dose: 700 mg Documented by: Magnesium Oxide (Magnesium Oxide 250 Mg Tab) 250 mg PO BIDMEALS [facility] Last Admin: 05/16/21 08:56 Dose: 250 mg Documented by: Methylprednisolone Sodium Succinate (Methylprednisolone Sodium Succinate 40 Mg/1 Ml Sdv) 40 mg IVPUSH DAILY [facility] Last Admin: 05/16/21 08:58 Dose: 40 mg Documented by: Metoprolol Succinate (Metoprolol Succinate 25 Mg Tab.Er) 25 mg PO DAILY [facility] Last Admin: 05/16/21 10:04 Dose: 25 mg Documented by: Mineral Oil/White Petrolatum (Mineral Oil/Petrolatum Ophth Oint 3.5 Gm Tube) 1 gm EYEBOTH BEDTIME [facility] Last Admin: 05/15/21 20:11 Dose: Not Given Documented by: Morphine Sulfate (Morphine 2 Mg/Ml Syringe) 2 mg IVPUSH Q2H PRN PRN Reason: Pain (severe 7-10) Ondansetron HCl (Ondansetron 4 Mg/2 Ml Sdv) 4 mg IVPUSH Q4H PRN PRN Reason: Nausea/Vomiting Pantoprazole Sodium (Pantoprazole 40 Mg Tab.Cr) 40 mg PO ACBRK [facility] Last Admin: 05/16/21 05:45 Dose: 40 mg Documented by: Rivaroxaban (Rivaroxaban 10 Mg Tab) 15 mg PO BID [facility] Last Admin: 05/16/21 08:56 Dose: 15 mg Documented by: Simvastatin (Simvastatin 10 Mg Tab) 10 mg PO BEDTIME [facility] Last Admin: 05/15/21 20:05 Dose: 10 mg Documented by: Sodium Chloride (Sodium Chloride 0.9% 10 Ml Syringe) 10 ml FLUSH ASDIRECTED PRN PRN Reason: Keep Vein Open Verapamil HCl (Verapamil 180 Mg Tab.Er) 180 mg PO BEDTIME [facility] Last Admin: 05/15/21 20:05 Dose: 180 mg Documented by: Discontinued Medications Albuterol/Ipratropium (Albuterol/Ipratropium 3.0-0.5 Mg/3 Ml Neb Soln) 3 ml NEB ONETIME ONE Stop: 05/14/21 14:19 Last Admin: 05/14/21 14:45 Dose: 3 ml Documented by: Sodium Chloride (Normal Saline) 1,000 mls @ 100 mls/hr IV ASDIRECTED [facility] Last Admin: 05/14/21 16:03 Dose: 100 mls/hr Documented by: Cefepime HCl 2 gm/ Sodium (Chloride) 50 mls @ 100 mls/hr IV Q12HR STEVIE Cefepime HCl 1 gm/ Sodium (Chloride) 50 mls @ 100 mls/hr IV Q12HR [facility] Last Admin: 05/15/21 08:31 Dose: 100 mls/hr Documented by: Non-Formulary Medication (Leflunomide [Leflunomide]) 10 mg PO DAILY [facility] Last Admin: 05/15/21 11:57 Dose: Not Given Documented by: Pantoprazole Sodium (Pantoprazole 40 Mg Tab.Cr) 40 mg PO DAILY [facility] Potassium Chloride (Potassium Chloride 10 Meq Tab.Er) 40 meq PO ONETIME ONE Stop: 05/14/21 17:49 Last Admin: 05/14/21 18:31 Dose: 40 meq Documented by: Sodium Chloride (Sodium Chloride 0.9% 10 Ml Syringe) 10 ml FLUSH ASDIRECTED PRN PRN Reason: Keep Vein Open Last Admin: 05/14/21 15:07 Dose: 10 ml Documented by: Sodium Chloride (Sodium Chloride 1 Gm Tab) 2 gm PO ONETIME ONE Stop: 05/14/21 17:50 Last Admin: 05/14/21 18:31 Dose: 2 gm Documented by: - Exam Quality Assessment: Denies: Supplemental Oxygen, Central Line/PICC, Urine Catheter General: Reports: Alert, Oriented, Cooperative, No Acute Distress HEENT: Reports: Pupils Equal, Pupils Reactive, EOMI, Mucous Membr. Moist/[place] Neck: Reports: Supple, No JVD, No Thyromegaly Lungs: Reports: Clear to Auscultation, Normal Respiratory Effort Cardiovascular: Reports: Regular Rate, Regular Rhythm, Murmurs GI/Abdominal Exam: Normal Bowel Sounds, Soft, Non-Tender, No Organomegaly (Female) Exam: Deferred Back Exam: Reports: Normal Inspection Skin: Reports: Warm, Dry, Intact Neurological: Reports: No New Focal Deficit Psy/Mental Status: Reports: Alert, Normal Affect, Normal Mood
[2021-05-16 13:39] VITALS: BP 100/51; PULSE 77
== END 2021-05-16 14:30 | disposition home or self-care (01) | DRG 189 ==
LOC: DL.ED 14:02 → DL.MS 16:14
PROVIDERS: ADMIT Internal Medicine; ATTEND Internal Medicine Nephrology
DX: J96.91 Respiratory failure, unspecified with hypoxia (principal); E87.1 Hypo-osmolality and hyponatremia; R06.09 Other forms of dyspnea; D84.9 Immunodeficiency, unspecified; H54.7 Unspecified visual loss; I27.82 Chronic pulmonary embolism; I48.91 Unspecified atrial fibrillation; I48.20 Chronic atrial fibrillation, unspecified; U09.9 Post COVID-19 condition, unspecified; J84.9 Interstitial pulmonary disease, unspecified; K21.9 Gastro-esophageal reflux disease without esophagitis; J84.10 Pulmonary fibrosis, unspecified; J45.909 Unspecified asthma, uncomplicated; M81.0 Age-related osteoporosis without current pathological fracture; M06.9 Rheumatoid arthritis, unspecified; H54.62 Unqualified visual loss, left eye, normal vision right eye; H40.9 Unspecified glaucoma; Z88.8 Allergy status to other drugs, medicaments and biological substances; E78.00 Pure hypercholesterolemia, unspecified; M19.90 Unspecified osteoarthritis, unspecified site; K44.9 Diaphragmatic hernia without obstruction or gangrene; I27.20 Pulmonary hypertension, unspecified; D64.9 Anemia, unspecified; Z79.01 Long term (current) use of anticoagulants; Z79.52 Long term (current) use of systemic steroids; Z88.1 Allergy status to other antibiotic agents; Z88.5 Allergy status to narcotic agent; Z79.899 Other long term (current) drug therapy; Z95.0 Presence of cardiac pacemaker
CPT/HCPCS: 36415; 71250; 80053; 82272; 83605; 83880; 84145; 84484; 85025; 85610; 85730; 86140; 87040 ×2; 93005; 94640; J7030; 80048; 81001; 83735; 84100; 99285-25; A9270-GY; J0692; J1940; J2920; J3490; J7620-GY

== ENCOUNTER 2021-07-21 18:10 | Emergency (ER) | payer MEDICARE, OTHER ==
[2021-07-21] MEDS ORDERED: Oxymetazoline 0.05% Nasal Spray 30 ML Bottle NAS ONE (18:51)
[2021-07-21 19:41] VITALS: BP 178/87; PULSE 87
== END 2021-07-21 19:50 | disposition home or self-care (01) ==
LOC: DL.ED 18:10
DX: R04.0 Epistaxis (principal); I48.91 Unspecified atrial fibrillation; K21.9 Gastro-esophageal reflux disease without esophagitis; E66.9 Obesity, unspecified; Z68.1 Body mass index [BMI] 19.9 or less, adult; Z88.0 Allergy status to penicillin; Z88.1 Allergy status to other antibiotic agents; Z88.6 Allergy status to analgesic agent; Z79.899 Other long term (current) drug therapy
CPT/HCPCS: 99283; A9270

== ENCOUNTER 2021-11-23 18:21 | Emergency (ER) | payer MEDICARE, OTHER ==
[2021-11-23] MEDS ORDERED: Sodium Chloride 0.9% 10 ML Syringe FLUSH PRN (18:52)
[2021-11-23 19:45] LABS: ANION GAP 10.8 mEq/L (7-13)
[2021-11-23 19:49] VITALS: BP 136/59; PULSE 80
[2021-11-23] MEDS ORDERED: Sodium Chloride 0.9% 500 ML IV ONE (20:05)
[2021-11-23] MEDS ORDERED: Sodium Chloride 0.9% 1,000 ML IV ONE (20:48)
[2021-11-23] MEDS ORDERED: Doxycycline Monohydrate 100 MG Cap PO ONE (21:11)
== END 2021-11-23 21:30 | disposition home or self-care (01) ==
LOC: DL.ED 18:21
DX: J18.9 Pneumonia, unspecified organism (principal); D64.9 Anemia, unspecified; K21.9 Gastro-esophageal reflux disease without esophagitis; I48.91 Unspecified atrial fibrillation; E78.00 Pure hypercholesterolemia, unspecified; E66.9 Obesity, unspecified; Z68.1 Body mass index [BMI] 19.9 or less, adult; Z95.0 Presence of cardiac pacemaker; Z88.0 Allergy status to penicillin; Z88.1 Allergy status to other antibiotic agents; Z88.5 Allergy status to narcotic agent; Z79.899 Other long term (current) drug therapy; Z20.822 Contact with and (suspected) exposure to COVID-19
CPT/HCPCS: 36415; 71045; 80053; 81001; 83605; 83880; 84145; 85025; 86140; 87040; 99283; A9270; J3490; J7030; U0002

== ENCOUNTER 2021-12-14 14:34 | Emergency (ER) | payer MEDICARE, OTHER ==
[2021-12-14 13:48] VITALS: BP 162/65; PULSE 67
[2021-12-14] MEDS ORDERED: Acetaminophen 500 MG Tab PO ONE (15:21)
== END 2021-12-14 15:29 | disposition home or self-care (01) ==
LOC: DL.ED 14:34
DX: M25.552 Pain in left hip (principal); J45.909 Unspecified asthma, uncomplicated; K21.9 Gastro-esophageal reflux disease without esophagitis; E66.9 Obesity, unspecified; Z68.30 Body mass index [BMI] 30.0-30.9, adult; Z88.8 Allergy status to other drugs, medicaments and biological substances; Z88.0 Allergy status to penicillin; Z88.1 Allergy status to other antibiotic agents; Z88.5 Allergy status to narcotic agent; Z79.899 Other long term (current) drug therapy; Z86.16 Personal history of COVID-19
CPT/HCPCS: 72131; 73700; 99283; 99284; A9270

== ENCOUNTER 2022-01-18 13:27 | Observation (INO) | payer MEDICARE, OTHER ==
[2022-01-18] MEDS ORDERED: Docusate Sodium 100 MG Cap PO PRN (14:41)
[2022-01-18] MEDS ORDERED: Bisacodyl 5 MG Tab PO PRN (14:41)
[2022-01-18] MEDS ORDERED: Ondansetron 4 MG Tab.DIS PO PRN (14:41)
[2022-01-18] MEDS ORDERED: Sodium Chloride 0.9% 10 ML Syringe FLUSH PRN (14:41)
[2022-01-18] MEDS ORDERED: guaiFENesin 100 MG/5 ML Soln 5 ML UD Cup PO PRN (14:44)
[2022-01-18] MEDS ORDERED: Albuterol 6.7 GM Inhaler INH PRN (14:44)
[2022-01-18] MEDS ORDERED: Codeine/guaiFENesin 10-100 MG/5 ML Syrup 5 ML Cup PO PRN (14:44)
[2022-01-18] MEDS: Acetaminophen 325 MG Tab PO PRN ×2 (17:56→23:27)
[2022-01-18] MEDS: CARBOXYMETHYLCELLULOSE EYERT SCH ×2 (17:56→23:22)
[2022-01-18] MEDS ORDERED: FLUTICASONE PROPIONATE NASBOTH SCH (21:00)
[2022-01-18] MEDS: Sodium Chloride 0.9% 10 ML Syringe FLUSH SCH (21:03)
[2022-01-18] MEDS: Simvastatin 10 MG Tab **OWN MED PO SCH (23:23)
[2022-01-18] MEDS: BRIMONIDINE 0.15% EYELF SCH (23:24)
[2022-01-19] MEDS: Pantoprazole 40 MG Tab.CR **OWN MED PO SCH (06:05)
[2022-01-19] MEDS: CARBOXYMETHYLCELLULOSE EYERT SCH ×4 (09:05→20:17)
[2022-01-19] MEDS: BRIMONIDINE 0.15% EYELF SCH ×2 (09:05→20:18)
[2022-01-19] MEDS: Metoprolol Succinate 25 MG Tab.ER **OWN MED PO SCH (09:06)
[2022-01-19] MEDS: CETIRIZINE HCL 10 MG PO SCH (09:07)
[2022-01-19] MEDS: Sodium Chloride 0.9% 10 ML Syringe FLUSH SCH ×2 (09:08→20:24)
[2022-01-19] MEDS: TIMOLOL EYELF SCH ×2 (10:47→20:21)
[2022-01-19] MEDS: DORZOLAMIDE EYELF SCH ×2 (10:47→20:21)
[2022-01-19] MEDS: Megestrol 40 MG Tab PO SCH ×2 (10:47→20:13)
[2022-01-19] MEDS: LEFLUNOMIDE 10 MG PO SCH (14:53)
[2022-01-19] MEDS: FORMOTEROL 20 MCG/2 ML INH SCH (18:22)
[2022-01-19] MEDS: Acetaminophen 325 MG Tab PO PRN (18:44)
[2022-01-19] MEDS: Simvastatin 10 MG Tab **OWN MED PO SCH (20:14)
[2022-01-19] MEDS: Lidocaine 5% 700 MG Patch TOP SCH (20:21)
[2022-01-20] MEDS: Pantoprazole 40 MG Tab.CR **OWN MED PO SCH (05:29)
[2022-01-20] MEDS: FORMOTEROL 20 MCG/2 ML INH SCH ×2 (07:54→18:34)
[2022-01-20] MEDS: CARBOXYMETHYLCELLULOSE EYERT SCH ×4 (08:10→21:01)
[2022-01-20] MEDS: BRIMONIDINE 0.15% EYELF SCH ×2 (08:11→21:00)
[2022-01-20] MEDS: Megestrol 40 MG Tab PO SCH ×2 (09:03→20:59)
[2022-01-20] MEDS: CETIRIZINE HCL 10 MG PO SCH (09:04)
[2022-01-20] MEDS: DORZOLAMIDE EYELF SCH ×2 (09:06→21:04)
[2022-01-20] MEDS: TIMOLOL EYELF SCH ×2 (09:06→21:04)
[2022-01-20] MEDS: LEFLUNOMIDE 10 MG PO SCH (09:06)
[2022-01-20] MEDS: Sodium Chloride 0.9% 10 ML Syringe FLUSH SCH ×2 (09:07→21:03)
[2022-01-20] MEDS: Metoprolol Succinate 25 MG Tab.ER **OWN MED PO SCH (09:08)
[2022-01-20] MEDS: Acetaminophen 325 MG Tab PO PRN ×2 (16:40→20:59)
[2022-01-20] MEDS: Lidocaine 5% 700 MG Patch TOP SCH (20:57)
[2022-01-20] MEDS: Simvastatin 10 MG Tab **OWN MED PO SCH (21:03)
[2022-01-21] MEDS: Acetaminophen 325 MG Tab PO PRN ×2 (05:47→09:41)
[2022-01-21] MEDS: Pantoprazole 40 MG Tab.CR **OWN MED PO SCH (05:47)
[2022-01-21 08:04] VITALS: PULSE 87
[2022-01-21] MEDS: CARBOXYMETHYLCELLULOSE EYERT SCH (08:36)
[2022-01-21] MEDS: BRIMONIDINE 0.15% EYELF SCH (08:38)
[2022-01-21] MEDS: TIMOLOL EYELF SCH (08:39)
[2022-01-21] MEDS: DORZOLAMIDE EYELF SCH (08:39)
[2022-01-21] MEDS: CETIRIZINE HCL 10 MG PO SCH (08:43)
[2022-01-21 08:45] VITALS: BP 120/67
[2022-01-21] MEDS: Metoprolol Succinate 25 MG Tab.ER **OWN MED PO SCH (08:45)
[2022-01-21] MEDS: LEFLUNOMIDE 10 MG PO SCH (08:47)
[2022-01-21] MEDS: Megestrol 40 MG Tab PO SCH (08:48)
[2022-01-21] MEDS: Sodium Chloride 0.9% 10 ML Syringe FLUSH SCH (08:53)
[2022-01-21] MEDS: FORMOTEROL 20 MCG/2 ML INH SCH (09:07)
== END 2022-01-21 12:30 | disposition home or self-care (01) ==
LOC: UNDOADMOB 13:27 → DL.MS 13:27
PROVIDERS: ADMIT Hospitalist; ATTEND Hospitalist
DX: J84.10 Pulmonary fibrosis, unspecified (principal); R09.02 Hypoxemia; E78.00 Pure hypercholesterolemia, unspecified; J45.909 Unspecified asthma, uncomplicated; K21.9 Gastro-esophageal reflux disease without esophagitis; M06.9 Rheumatoid arthritis, unspecified; E66.9 Obesity, unspecified; I48.0 Paroxysmal atrial fibrillation; D64.9 Anemia, unspecified; M35.00 Sjogren syndrome, unspecified; Z20.822 Contact with and (suspected) exposure to COVID-19; Z88.8 Allergy status to other drugs, medicaments and biological substances; Z88.1 Allergy status to other antibiotic agents; Z88.5 Allergy status to narcotic agent; Z79.899 Other long term (current) drug therapy; Z86.16 Personal history of COVID-19; Z98.890 Other specified postprocedural states
CPT/HCPCS: 36415; 36430; 82272; 85025; 86850; 86870; 86900; 86901; 86902; 86920; 86922; 94640; A9270; J3490; J7606; P9016; U0002; G0378; G0379